=== PATIENT | male | born 1940 | race Caucasian/White ===

== ENCOUNTER 2017-04-14 14:48 | Inpatient (IN) | payer MEDICARE ==
[2017-04-14 16:13] LABS: Hematocrit 45 % (42-52); Hemoglobin 15.3 g/dl (14.0-18.0); Mean Corpuscular HGB Conc 34 g/dl (31-36); Mean Corpuscular Hemoglobin 34 pg (27-31); Mean Corpuscular Volume 99 fL (80-94); Mean Platelet Volume 8 um3 (7.4-10.4); Red Blood Count 4.53 10^6/ul (4.0-5.4); Red Cell Distribution Width 13 % (10.5-15); White Blood Count 7.6 10^3/ul (3.5-10.8)
[2017-04-14 16:24] LABS: Albumin 4.3 g/dL (3.2-5.2); BUN/Creatinine Ratio 16.5 (8-20); Calcium 9.6 mg/dL (8.6-10.3); EGFR African American 104.2 (>60); Globulin 2.8 g/dL (2-4); Potassium 4.2 mmol/L (3.5-5.0); Total Bilirubin 0.7 mg/dL (0.2-1.0); Total Protein 7.1 g/dL (6.4-8.9)
--- NOTE | 2017-04-14 16:31 | RAD ---
HISTORY: Loss of peripheral vision, headache, colon cancer COMPARISONS: None TECHNIQUE: Multiple contiguous axial CT scans were obtained of the head without intravenous contrast. FINDINGS: HEMORRHAGE/INFARCT: There is a left frontoparietal subdural hematoma further described below. There is high attenuation material consistent with hemorrhage noted within a left occipital infarct, also described below. MASSES/SHIFT: There is no mass or shift. EXTRA-AXIAL SPACES: As noted above, there is a left frontoparietal convexity extra-axial fluid collection consistent with a subacute to chronic subdural hematoma. This measures 1 cm in depth. SULCI AND VENTRICLES: The sulci and ventricles are normal in size and position for the patient's stated age. CEREBRUM: There is hypoattenuation of the left occipital lobe consistent with subacute infarct. There is high attenuation material centrally consistent with hemorrhagic conversion. There is no stephon parenchymal hematoma. BRAINSTEM: There are no focal parenchymal abnormalities. CEREBELLUM: There are no focal parenchymal abnormalities. VESSELS: The vessels are grossly normal. PARANASAL SINUSES: The paranasal sinuses are clear. ORBITS: The orbits are unremarkable. BONES AND SOFT TISSUE: No bone or soft tissue abnormalities are noted. OTHER: None IMPRESSION: 1. FINDINGS CONSISTENT WITH HEMORRHAGIC CONVERSION OF A SUBACUTE LEFT OCCIPITAL INFARCT. 2. 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 3. PRELIMINARY FINDINGS WERE DISCUSSED WITH DR. SAAVEDRA IN THE EMERGENCY DEPARTMENT AT APPROXIMATELY 4:28 PM ON APRIL 14, 2017.
--- NOTE | 2017-04-14 17:30 | RAD ---
HISTORY: Weakness COMPARISONS: None VIEWS:1: Single frontal portable view of the chest at 5:27 PM FINDINGS: LINES AND TUBES: None. CARDIOMEDIASTINAL SILHOUETTE: The cardiomediastinal silhouette is normal for portable technique. PLEURA: The costophrenic angles are sharp. No pleural abnormalities are noted. LUNG PARENCHYMA: The lungs are clear. ABDOMEN: The upper abdomen is clear. There is no subphrenic gas. BONES AND SOFT TISSUES: No bone or soft tissue abnormalities are noted. IMPRESSION: NO ACTIVE CARDIOPULMONARY DISEASE.
[2017-04-14 17:31] LABS: Troponin I 0.01 ng/mL (<0.04)
[2017-04-14] MEDS ORDERED: Acetaminophen TAB* 325 MG PO PRN (18:27)
[2017-04-14] MEDS ORDERED: Iohexol 350* (CONTRAST) 500 ML MDV IV ONE (18:29)
[2017-04-14] MEDS ORDERED: NS 0.9% 1000 ML* 1,000 ML IV SCH (18:30)
--- NOTE | 2017-04-14 20:19 | RAD ---
HISTORY: Stroke, rule out stenosis COMPARISONS: CT dated April 14, 2017 TECHNIQUE: Multiple contiguous axial CT scans were obtained of the head and neck After the administration of nonionic intravenous contrast timed to the systemic arterial phase of contrast enhancement. Coronal and sagittal multiplanar reformations are submitted for review. Multiple 3-D maximum intensity projection reconstructions are also submitted for review. FINDINGS: CTA NECK: AORTIC ARCH: There is calcific atherosclerotic disease of the aortic arch, without ostial or proximal stenosis of the cephalic great vessels. There is a normal three-vessel branching pattern. RIGHT VERTEBRAL ARTERY: The right vertebral artery is patent along its course, without stenosis. LEFT VERTEBRAL ARTERY: The left vertebral artery is patent along its course, without stenosis. DOMINANCE: The left vertebral artery is dominant. RIGHT COMMON CAROTID ARTERY: The right common carotid artery is patent. The right carotid bifurcation occurs at C4-C5 RIGHT INTERNAL CAROTID ARTERY: There is atheromatous disease of the right carotid bifurcation, without right internal carotid artery stenosis by NASCET criteria. RIGHT EXTERNAL CAROTID ARTERY: The right external carotid artery is unremarkable. LEFT COMMON CAROTID ARTERY: The left common carotid artery is patent. The left carotid bifurcation occurs at C5 LEFT INTERNAL CAROTID ARTERY: There is atheromatous disease of the left carotid bifurcation, without left internal carotid artery stenosis by NASCET criteria. LEFT EXTERNAL CAROTID ARTERY: The left external carotid artery is unremarkable. VENOUS CIRCULATION: The venous system is unremarkable. SALIVARY GLANDS: The parotid glands, submandibular glands, sublingual glands are normal. NASAL CAVITY/NASOPHARYNX: The nasal cavity and nasopharynx are normal. ORAL CAVITY/OROPHARYNX: The oral cavity and oropharynx are unremarkable. LARYNGEAL APPARATUS/HYPOPHARYNX: The laryngeal apparatus and hypopharynx are normal. UPPER AIRWAY/UPPER ESOPHAGUS: The visualized upper airway and esophagus are normal. LUNG APICES: There is emphysema with right apical pleuroparenchymal scarring THYROID GLAND: The thyroid gland is normal. LYMPH NODES: There is no lymphadenopathy by size criteria. BONES AND SOFT TISSUES: Degenerative changes are noted of the cervical spine CTA HEAD: INTRACRANIAL CIRCULATION: There is calcification of the cavernous segments of internal carotid arteries bilaterally. There is no aneurysm, vascular malformation, occlusion, or stenosis of the visualized intracranial circulation. The anterior communicating artery complex is clear. Bilateral posterior communicating arteries are identified. VENOUS CIRCULATION: The venous system is unremarkable. PERFUSION: There is no obvious parenchymal perfusion deficit. HEMORRHAGE/INFARCT: As noted on the previous examination, there is a subacute infarct of the left occipital lobe with hemorrhagic MASSES/SHIFT: There is no mass or shift. EXTRA-AXIAL SPACES: As noted on the previous examination, there is a subacute to chronic left frontoparietal subdural hematoma. SULCI AND VENTRICLES: The sulci and ventricles are normal in size and position for the patient's stated age. CEREBRUM: As noted above, there is a subacute left occipital infarct with hemorrhagic conversion BRAINSTEM: There are no focal parenchymal abnormalities. CEREBELLUM: There are no focal parenchymal abnormalities. PARANASAL SINUSES: The paranasal sinuses are clear. ORBITS: The orbits are unremarkable. BONES AND SOFT TISSUE: No bone or soft tissue abnormalities are noted. OTHER: There is no abnormal enhancement. IMPRESSION: 1. AGAIN IT IS A LEFT OCCIPITAL SUBACUTE INFARCT WITH HEMORRHAGIC CONVERSION. 2. AGAIN NOTED IS A LEFT FRONTOPARIETAL SUBDURAL HEMATOMA. 3. THERE IS ATHEROSCLEROSIS OF THE CAROTID BIFURCATIONS BILATERALLY WITHOUT INTERNAL CAROTID ARTERY STENOSIS BY NASCET CRITERIA. 4. NO ANEURYSM, VASCULAR MALFORMATION, OCCLUSION, OR STENOSIS OF THE VISUALIZED INTRACRANIAL CIRCULATION. 5. EMPHYSEMA WITH RIGHT APICAL PLEURAL PARENCHYMAL SCARRING CPT II Codes: 3100F
--- NOTE | 2017-04-14 20:27 | RAD ---
HISTORY: Blurred vision, stroke, subdural hematoma COMPARISONS: Head CT dated April 14, 2017 TECHNIQUE: The following sequences were obtained of the head: Sagittal T1-weighted images, axial T2-weighted images, axial FLAIR images, axial susceptibility weighted images, axial T1-weighted images. Additionally, axial diffusion-weighted images were obtained with calculated apparent diffusion coefficients. FINDINGS: HEMORRHAGE/INFARCT: As noted on the head CT, there is a left occipital infarct with hemorrhagic conversion. Elsewhere, there is no hemorrhage or acute infarct. MASSES/SHIFT: There is no mass or shift. EXTRA-AXIAL SPACES/MENINGES: As noted on head CT, there is a left subacute to chronic frontoparietal subdural hematoma. This measures approximately 1 cm in depth. SULCI AND VENTRICLES: The sulci and ventricles are normal in size and position for the patient's stated age. CEREBRUM: As noted above, there is elevated T2/flair signal with blood product noted in the left occipital lobe. There is associated elevated diffusion signal without restricted diffusion on the ADC map, consistent with pseudonormalization in the setting of subacute to chronic infarct. BRAINSTEM: There are no focal parenchymal abnormalities. CEREBELLUM: There are no focal parenchymal abnormalities. The cerebellar tonsils are normal in size and position. SELLA: The sella is normal. PINEAL: The pineal region is clear. CP ANGLE/TEMPORAL BONES: The labyrinthine structures are grossly normal. VESSELS: Normal flow-voids are noted within the visualized vertebral vasculature. DIFFUSION ABNORMALITIES: As noted above, there is elevated diffusion signal within the left occipital lobe without restricted diffusion consistent with pseudonormalization in the setting of subacute to chronic infarct PARANASAL SINUSES/MASTOIDS: The paranasal sinuses are clear. ORBITS: The orbits are unremarkable. BONES AND SOFT TISSUE: No bone or soft tissue abnormalities are noted. OTHER: None IMPRESSION: 1. SUBACUTE TO CHRONIC LEFT OCCIPITAL INFARCT WITH BLOOD PRODUCT CONSISTENT WITH HEMORRHAGIC CONVERSION. 2. SUBACUTE TO CHRONIC LEFT FRONTOPARIETAL SUBDURAL HEMATOMA
[2017-04-14] MEDS: Docusate CAP* 100 MG PO SCH (22:05)
--- NOTE | 2017-04-14 23:53 | HP ---
CC: Dr. Cerrato, Ophthalmology; Dr. Carrington* HISTORY AND PHYSICAL: DATE OF ADMISSION: 04/14/17 PRIMARY CARE PHYSICIAN: Rosita Antoine NP CHIEF COMPLAINT: Visual changes. HISTORY OF PRESENT ILLNESS: Bridger Robertson is a 76-year-old male with history of glucose intolerance, hypertension, colon cancer, who was sent from our local stable cleaner's office with concerns of most likely ischemic CVA. The patient stated that for the past week, he has been problems with visual field deficits on the right side. He stated that although it started getting better, he went to see provider Dr. Cerrato's office for evaluation, and on his visual field evaluation, it was noticed that he has right superior temporal quadrantanopia. Subsequent CT of the brain obtained in our emergency department showed hemorrhagic conversion of subacute left occipital infarct as well as left frontoparietal subacute to chronic subdural hematoma without shift. The patient denies any head trauma. He is going to be admitted to the hospital with a diagnosis of stroke. PAST MEDICAL HISTORY: 1. History of bilateral knee replacement surgeries. 2. Hypertension. 3. Dyslipidemia. 4. Hypertension. 5. Basal skin cancer on the face and both arms. 6. History of glucose intolerance. 7. History of colon cancer, status post resection. ALLERGIES: No known drug allergies. MEDICATIONS: Includes: 1. Glucophage 500 mg daily. 2. Amlodipine 5 mg daily. 3. Aldactone 25 mg daily. 4. Multivitamin 1 tablet daily. 5. Lovastatin 20 mg daily. 6. Lisinopril 20 mg daily. 7. Aspirin 81 mg daily. FAMILY HISTORY: Positive for mother who of pancreatic cancer at the age of 76. Father at age of 91 secondary to CHF. SOCIAL HISTORY: The patient quit smoking in 2001. He denies any alcohol or drug use. He is retired and lives in an apartment adjacent to his son, Joel Robertson, who is also his surrogate. The patient is . REVIEW OF SYSTEMS: Please see history of present illness. The patient denies any headaches and recent head trauma. Stated that right-sided visual deficit has been getting better for the past one week. All the remaining 14 systems were reviewed with the patient and were otherwise negative. PHYSICAL EXAMINATION GENERAL: This is a very pleasant 76-year-old male who is in no acute distress. Alert, awake and oriented x3. VITAL SIGNS: Blood pressure of 161/64, heart rate of 68 and regular, respiratory rate 22, oxygen saturation 96% on room air, temperature of 98.9. HEENT: Head atraumatic, normocephalic. Eyes: Pupils equal and reactive to light and accommodation. Oropharynx clear. Mucosa moist. NECK: Supple. No JVD. No bruits bilaterally. RESPIRATORY: Clear to auscultation bilaterally. CARDIOVASCULAR: Regular rate and rhythm. No murmur. ABDOMEN: Soft, nontender. Bowel sounds present in all 4 quadrants. EXTREMITIES: There is no edema. Pulses 2+ bilaterally. No clubbing or cyanosis. NEUROLOGIC: The patient does have very minimal deficit in the right upper temporal visual rivera in bilateral eyes. Motor strength is 5/5 bilaterally. Finger-to- nose is intact bilaterally. Hand egg caser is +5 bilaterally. Bilateral lower extremities motor strength is 5/5. SKIN: No ecchymotic areas or rashes. PSYCHIATRIC EVALUATION: Awake, alert and oriented x3 with no evidence of anxiety or depression. LABORATORY DATA/DIAGNOSTIC STUDIES: Showed sodium of 130, potassium 4.2, chloride 98, carbon dioxide 25, BUN 16, creatinine 0.91. Liver functions unremarkable. Troponin of 0.01. INR of 0.98. PTT of 40.9. White blood cell count 7.6, hemoglobin 15.3, hematocrit 45, and platelets of 279. Portable chest x-ray, impression: "No active cardiopulmonary disease." Brain CT, impression: "Findings consistent with hemorrhagic conversion of subacute left occipital infarct. Left frontoparietal subacute chronic subdural hematoma without shift." The patient's EKG showed left bundle branch block. There was no old EKG available for comparison. ASSESSMENT AND PLAN: 1. Subacute cerebrovascular accidents with right-sided visual deficits that manifested itself approximately a week ago. The patient is going to be placed on inpatient status. Neuro checks are going to be instituted on [id number] basis. Dr. Carrington is going to be seeing the patient in consult. From the recommendation of the neurologist, the patient is going to undergo an MRI as well as CT angiogram of the head and neck, and echo with bubble study. His antiplatelet agent aspirin is going to be held due to subdural hematoma. Physical Therapy and Occupational Therapy will see the patient in evaluation. The patient did not have any dysphagia or dysarthria during my evaluation. He is going to be placed on diabetic diet and no swallow evaluation will be requested. 2. In regards to hypertension, his outpatient antihypertensive medications are going to be continued. His blood pressure is fairly controlled at this point. 3. In regards to dyslipidemia, the patient's Mevacor is out of formulary. We will place the patient on Lipitor during the hospital stay and fasting lipid profile is going to be obtained in the morning. 4. In regards to the patient's diet-controlled diabetes or glucose intolerance , the patient is on metformin. His hemoglobin A1c in February of 2017 was 6.6. At this point, metformin is going to be held but no other further tests are needed apart from continuation of diabetic diet. 5. Patient's code status is full. 6. DVT prophylaxis is going to be sequential compression devices since the patient cannot be on anticoagulation due to intracranial hemorrhage. TIME SPENT: Approximately 72 minutes were spent on admission of this patient, more than half that time was spent [id number] with the patient doing the interview and physical exam. [id number]/[facility] #: [id number] WILLIAMS
[2017-04-15 04:44] LABS: HDL Cholesterol 46.1 mg/dL
[2017-04-15] MEDS ORDERED: Spironolactone TAB* 25 MG PO SCH (09:00)
[2017-04-15] MEDS: amLODIPine TAB* 5 MG PO SCH (09:19)
[2017-04-15] MEDS: Lisinopril TAB* 10 MG PO SCH (09:19)
[2017-04-15] MEDS: Docusate CAP* 100 MG PO SCH ×2 (09:21→21:55)
[2017-04-15 09:33] LABS: BUN/Creatinine Ratio 17.6 (8-20); Calcium 8.8 mg/dL (8.6-10.3); EGFR African American 104.2 (>60); Potassium 4.4 mmol/L (3.5-5.0)
--- NOTE | 2017-04-15 13:42 | PN ---
Subjective Date of Service: 04/15/17 Interval History: pt feels that his vision is improved, still has slight light sensitivity. Denies headache, weakness Objective Active Medications: Acetaminophen (Tylenol Tab*) 650 mg PO Q4H PRN PRN Reason: FEVER/PAIN Last Admin: 04/14/17 22:07 Dose: 650 mg Amlodipine Besylate (Norvasc Tab*) 5 mg PO DAILY [facility] Last Admin: 04/15/17 09:19 Dose: 5 mg Atorvastatin Calcium (Lipitor*) 10 mg PO 1700 [facility] Docusate Sodium (Colace Cap*) 100 mg PO BID [facility] Last Admin: 04/15/17 09:21 Dose: Not Given Sodium Chloride (Ns 0.9% 1000 Ml*) 1,000 mls @ 75 mls/hr IV PER RATE [facility] Last Admin: 04/15/17 07:40 Dose: 75 mls/hr Lisinopril (Prinivil Tab*) 20 mg PO DAILY [facility] Last Admin: 04/15/17 09:19 Dose: 20 mg Vital Signs 04/14/17 04/14/17 04/14/17 17:30 18:29 20:00 Temperature 98.9 F Pulse Rate 67 64 Respiratory 22 14 18 Rate Blood Pressure 151/64 146/64 (mmHg) O2 Sat by Pulse 96 96 Oximetry 04/15/17 04/15/17 04/15/17 00:21 00:32 00:34 Temperature 98.1 F Pulse Rate 63 59 Respiratory 20 Rate Blood Pressure 107/56 105/54 134/66 (mmHg) O2 Sat by Pulse 95 Oximetry 04/15/17 04/15/17 04/15/17 04:01 07:29 08:00 Temperature 98.4 F 98.5 F Pulse Rate 63 62 Respiratory 20 16 16 Rate Blood Pressure 126/56 121/59 (mmHg) O2 Sat by Pulse 97 97 Oximetry 04/15/17 11:23 Temperature 98.9 F Pulse Rate 68 Respiratory 16 Rate Blood Pressure 139/55 (mmHg) O2 Sat by Pulse 97 Oximetry Oxygen Devices in Use Now: None Appearance: 76 yo m in NAD, AAOx3 Eyes: No Scleral Icterus, PERRLA Ears/Nose/Mouth/Throat: NL Teeth, Lips, Gums, Mucous Membranes Moist Neck: NL Appearance and Movements; NL JVP, Trachea Midline Respiratory: Symmetrical Chest Expansion and Respiratory Effort, Clear to Auscultation Cardiovascular: NL Sounds; No Murmurs; No JVD, RRR Abdominal: NL Sounds; No Tenderness; No Distention Lymphatic: No Cervical Adenopathy Extremities: No Edema, No Clubbing, Cyanosis Skin: No Rash or Ulcers, No Nodules or Sclerosis Neurological: Alert and Oriented x 3, NL Muscle Strength and Tone, - - no gross visual field deficit detected on today's exam Result Diagrams: 04/14/17 15:56 04/15/17 09:12 Additional Lab and Data: Lab Results 04/14/17 Range/Units 15:56 WBC 7.6 (3.5-10.8) 10^3/ul RBC 4.53 (4.0-5.4) 10^6/ul Hgb 15.3 (14.0-18.0) g/dl Hct 45 (42-52) % MCV 99 H (80-94) fL MCH 34 H (27-31) pg MCHC 34 (31-36) g/dl RDW 13 (10.5-15) % Plt Count 279 (150-450) 10^3/ul MPV 8 (7.4-10.4) um3 Neut % (Auto) 72.9 (38-83) % Lymph % (Auto) 16.1 L (25-47) % [place] % (Auto) 7.2 (1-9) % Eos % (Auto) 1.3 (0-6) % Baso % (Auto) 2.5 H (0-2) % Absolute Neuts (auto) 5.5 (1.5-7.7) 10^3/ul Absolute Lymphs (auto) 1.2 (1.0-4.8) 10^3/ul Absolute Monos (auto) 0.5 (0-0.8) 10^3/ul Absolute Eos (auto) 0.1 (0-0.6) 10^3/ul Absolute Basos (auto) 0.2 (0-0.2) 10^3/ul Absolute Nucleated RBC 0.01 10^3/ul Nucleated RBC % 0.1 Assess/Plan/Problems-Billing Assessment: 76 yo M with h/o HTN, DM2, colon ca, presents with visual field deficit x 1 week , CT shows SDH and ischemic CVA with hemorrhagic conversion - Patient Problems (1) CVA (cerebral vascular accident) Comment: ischemic, with hemorrhagic conversion cont telem-so far NSR with LBBB Awaiting TTE and Dr. Carrington's consult MRI brain and CTA confirm SDH and CVA, but no significant vascular abnormality noted. 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 In conjsunction with hyponatremia and mild dehydration, will d/c Aldactone (4) Hyperlipemia Comment: Lipitor instead of Mevacor when in hospital. LDL 87 Plan to increase Mevacor to 30 mg at d/c (5) DM2 (diabetes mellitus, type 2) Comment: Metformin held post contrast study. Hb A.1C 6.6 in 03/14, cont ISS Plan to restart metformin at d/c (6) LBBB (left bundle branch block) Comment: No previous EKG in med records. In process of obtainin notes from PCP No symptoms of CP/SOB, suspect chronic Echo pending troponin neg at admission. (7) Hyponatremia Comment: suspect mild dehydration IVF-pt did not receive IVF last night as ordered, reordered for today Stop Aldactone (8) DVT prophylaxis Comment: no anticoagulants due to SDH SCD's when in bed
--- NOTE | 2017-04-15 15:33 | ED ---
Na Hernandez Auryana, scribed for Dillon Villegas MD on 04/14/17 at 1631 . Neurological HPI - HPI Summary HPI Summary: 76 year old male presents to the ED s/p stroke like symptoms. Patient reports that last Thursday (04/08/17), his eyes became blurry and then he had left sided sharp temporal pain with nausea and photophobia. He called his PCP who recommended that he get an eye exam. 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 Patient also states that he cannot read anything but is able to spell words out. He denies any weakness, slurred speech or and difficulty speaking. PMHx is significant of colon cancer and HTN. No history of cardiac issues or any stroke. - History of Current Complaint Chief Complaint: EDEyeProblem Stated Complaint: BOTH EYES BLURRY/HEADACHE Time Seen by Provider: 04/14/17 16:06 Hx Obtained From: Patient Onset/Duration: Sudden Onset, Started days ago - last thursday 6 days ago Timing: Constant Onset Severity: Moderate Current Severity: Mild Pain Intensity: 3 Pain Scale Used: 0-10 Numeric Character: Visual Changes Associated Signs and Symptoms: Positive: Visual Changes - blindness in the RUQ - Allergy/Home Medications Allergies/Adverse Reactions: Allergies Allergy/AdvReac Type Severity Reaction Status Date / Time No Known Allergies Allergy Verified 08/29/14 06:18 Home Medications: Home Medications Aspirin EC Low Dose* [Ecotrin EC Low Dose 81 MG*] 81 mg PO DAILY 04/14/17 [ History Confirmed 04/14/17] Lisinopril TAB* [Prinivil TAB*] 20 mg PO DAILY 04/14/17 [History Confirmed 04/14] Lovastatin(NF) [Mevacor(NF)] 20 mg PO DAILY 04/14/17 [History Confirmed 04/14/17 ] Multivitamins/Minerals TAB* [Theragran/minerals TAB*] 1 tab PO DAILY 04/14/17 [ History Confirmed 04/14/17] Spironolactone TAB* [Aldactone TAB*] 25 mg PO DAILY 04/14/17 [History Confirmed 04/14/17] amLODIPine TAB* [Norvasc 5 mg TAB*] 5 mg PO DAILY 04/14/17 [History Confirmed ] metFORMIN* [Glucophage 500 MG TAB *] 500 mg PO DAILY 04/14/17 [History Confirmed 04/14/17] PMH/Surg Hx/FS Hx/Imm Hx Endocrine/Hematology History: Denies: Hx Diabetes, Hx Thyroid Disease Cardiovascular History: Reports: Hx Hypertension Musculoskeletal History: Reports: Hx Arthritis - RIGHT HIP, LEFT KNEE Sensory History: Reports: Hx Contacts or Glasses - READING Denies: Hx Hearing Aid Opthamlomology History: Reports: Hx Contacts or Glasses - READING Neurological History: Denies: Hx Headaches Psychiatric History: Denies: Hx Anxiety - Cancer History Cancer Type, Location and Year: COLON - Surgical History Surgery Procedure, Year, and Place: 2001 COLON RESECTION FOR [place]. 2010 RIGHT THR [place]. 2009 BILAT BLEPHAROPLASTY [facility] Hx Anesthesia Reactions: Yes - SEE NURSING NOTES Infectious Disease History: Denies: Traveled Outside the [place] in Last 30 Days - Social History Alcohol Use: None Substance Use Type: Reports: None Smoking Status (MU): Former Smoker Amount Used/How Often: 2 PACKSA/DAY FOR 30 YRS Length of Time of Smoking/Using Tobacco: 30 YRS Review of Systems Constitutional: Negative Negative: Fever Positive: Photophobia - resolved, Blurred Vision - resolved, Other - blindness in the RUQ ENT: Negative Cardiovascular: Negative Respiratory: Negative Gastrointestinal: Negative Positive: Nausea - resolved Genitourinary: Negative Musculoskeletal: Negative Skin: Negative Neurological: Other - unable to read words but is able to spell them Positive: Headache - left temporal pain resolved. Negative: Slurred Speech Psychological: Normal All Other Systems Reviewed And Are Negative: Yes Physical Exam - Summary Physical Exam Summary: VITAL SIGNS: Reviewed. GENERAL: ~Patient is a well-developed and nourished male who is lying comfortable in the stretcher. ~Patient is not in any acute respiratory distress. HEAD AND FACE: No signs of trauma. ~No ecchymosis, hematomas or skull depressions. No sinus tenderness. EYES: PERRLA, EOMI x 2, No injected conjunctiva, no nystagmus. No photophobia. EARS: Hearing grossly intact. Ear canals and tympanic membranes are within normal limits. MOUTH: Oropharynx within normal limits. NECK: Supple, trachea is midline, no adenopathy, no JVD, no carotid bruit, no c- spine tenderness, neck with full ROM. No meningeal signs, no Kernig's or brudzinskis signs. CHEST: Symmetric, no tenderness at palpation LUNGS: Clear to auscultation bilaterally. No wheezing or crackles. CVS: Regular rate and rhythm, S1 and S2 present, no murmurs or gallops appreciated. ABDOMEN: Soft, non-tender. No signs of distention. No rebound no guarding, and no masses palpated. Bowel sounds are normal. EXTREMITIES: FROM in all major joints, no edema, no cyanosis or clubbing. NEURO: Alert and oriented x 3. No acute neurological deficits. Speech is normal and follows commands. SKIN: Dry and warm Triage Information Reviewed: Yes Vital Signs On Initial Exam: Initial Vitals Temp Pulse Resp BP Pulse Ox 97.5 F 66 20 156/72 98 04/14/17 14:51 04/14/17 14:51 04/14/17 14:51 04/14/17 14:51 04/14/17 14:51 Vital Signs Reviewed: Yes Diagnostics - Vital Signs Vital Signs Temp Pulse Resp BP Pulse Ox 04/14/17 14:51 97.5 F 66 20 156/72 98 - Laboratory Lab Results: Lab Results 04/14/17 Range/Units 15:56 WBC 7.6 (3.5-10.8) 10^3/ul RBC 4.53 (4.0-5.4) 10^6/ul Hgb 15.3 (14.0-18.0) g/dl Hct 45 (42-52) % MCV 99 H (80-94) fL MCH 34 H (27-31) pg MCHC 34 (31-36) g/dl RDW 13 (10.5-15) % Plt Count 279 (150-450) 10^3/ul MPV 8 (7.4-10.4) um3 Neut % (Auto) 72.9 (38-83) % Lymph % (Auto) 16.1 L (25-47) % [place] % (Auto) 7.2 (1-9) % Eos % (Auto) 1.3 (0-6) % Baso % (Auto) 2.5 H (0-2) % Absolute Neuts (auto) 5.5 (1.5-7.7) 10^3/ul Absolute Lymphs (auto) 1.2 (1.0-4.8) 10^3/ul Absolute Monos (auto) 0.5 (0-0.8) 10^3/ul Absolute Eos (auto) 0.1 (0-0.6) 10^3/ul Absolute Basos (auto) 0.2 (0-0.2) 10^3/ul Absolute Nucleated RBC 0.01 10^3/ul Nucleated RBC % 0.1 Result Diagrams: 04/14/17 15:56 04/14/17 15:56 Lab Statement: Any lab studies that have been ordered have been reviewed, and results considered in the medical decision making process. - CT BRAIN CT Interpretation: Positive (See Comments) - IMPRESSION: 1. FINDINGS CONSISTENT WITH HEMORRHAGIC CONVERSION OF A SUBACUTE LEFT OCCIPITAL INFARCT. 2. 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 3. PRELIMINARY FINDINGS WERE DISCUSSED WITH DR. VILLEGAS IN THE EMERGENCY DEPARTMENT AT APPROXIMATELY 4:28 PM ON APRIL 14, 2017. CT Interpretation Completed By: Radiologist - EKG 15:12 EKG Interpretation: Sinus rhythm @ 62, Q waves in leads III, avF, V1-V3 Course/Dx - Course Assessment/Plan: 76 year old male presents to the ED s/p stroke like symptoms. Patient reports that last Thursday (04/08/17), his eyes became blurry and then he had left sided sharp temporal pain with nausea and photophobia. He called his PCP who recommended that he get an eye exam. 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 Patient also states that he cannot read anything but is able to spell words out. He denies any weakness, slurred speech or and difficulty speaking. PMHx is significant of colon cancer and HTN. No history of cardiac issues or any stroke. In the ED course an IV access was obtained. Patient was placed in a cardiac rehabilitation program director. Patient was started with IV fluids. Labs w/o a significant abnormality except for NA 130. Troponin #1: EKG shows a NSR 64 BPM , with Q waves II, aVF, V1 to V3. CXR impression: No acute pathology. Head CT IMPRESSION: 1. FINDINGS CONSISTENT WITH HEMORRHAGIC CONVERSION OF A SUBACUTE LEFT OCCIPITAL INFARCT. 2. 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 In the ED course he has been stable and has no complaints. I discussed the case with Dr. Carrington who will consult for the patient. I discuss my physical exam, findings and test results with Dr. Goddard from the hospitalist services and she agrees to admit patient to his services. Patient is hemodynamically stable alert and oriented x 3. - Differential Dx Differential Diagnoses Neuro: Positive: Cerebrovascular Accident, Seizure Disorder, Transient Ischemic Attack - Diagnoses Provider Diagnoses: ischemic and hemorrhagic CVA, Subdural hematoma - Physician Notifications Discussed Care Of Patient With: Irasema Carrington Time Discussed With Above Provider: 17:00 - WILL CONSULT PATINET AND RECOMMENDS ADMISSION TO [facility] [place] - Discharge Plan Condition: Stable Disposition: ADMITTED TO [facility] Referrals: Rosita Antoine FILBERT GROWER [Primary Care Provider] - The documentation as recorded by the Na douglass Auryana accurately reflects the service I personally performed and the decisions made by me, Dillon Villegas MD.
[2017-04-15] MEDS ORDERED: Atorvastatin* 10 MG TAB PO SCH (17:00)
[2017-04-15] MEDS: Aspirin Low Dose CHEW TAB* 81 MG PO SCH (17:31)
--- NOTE | 2017-04-15 17:31 | ECHO ---
Patient: BOTSON BRAUN [facility] Rec#: [id number] : 1940 Date: 04/15/2017 Age: 76y Height: 180.34 cm / 71.0 in Weight: 89.81 kg / 197.9 lbs Sex: M BSA: 2.1 Room#: 435 Admit Date#: 04/14/2017 Type: Inpatient Referring: Teresa Goddard MD Reading: Paige Yarbrough MD Piercer Operator: Toya Mcfarlane [facility] Transthoracic Echocardiogram Indication: CVA BP: 126/56 HR: 68 Rhythm: NSR Findings History: HTN, prior colon cancer,HLD,former smoker. EKG with LBBB. Technical Comments: The study quality is fair. Left Ventricle: The left ventricular chamber size is normal. Mild concentric left ventricular hypertrophy is observed. Global left ventricular wall motion and contractility are within normal limits. The left ventricle appears hyperdynamic. The estimated ejection fraction is 60-65%. Abnormal left ventricular diastolic function is observed. Left Atrium: The left atrial chamber size is normal. Right Ventricle: The right ventricular cavity size is normal. The right ventricular global systolic function is normal. Right Atrium: The right atrial cavity size is normal. There is no patent foramen ovale visualized. A patent foramen ovale is not demonstrated with color Doppler and agitated contrast. Study suboptimal due to body habitus. Aortic Valve: The aortic valve is trileaflet. There is no evidence of aortic valve thickening. There is no evidence of aortic regurgitation. There is no evidence of aortic stenosis. Mitral Valve: There is mitral annular calcification. The mitral valve leaflets are mildly thickened. There is a trace of mitral regurgitation. There is no evidence of mitral stenosis. Tricuspid Valve: The tricuspid valve leaflets are normal. There is no evidence of tricuspid valve regurgitation. There is no tricuspid stenosis. Pulmonic Valve: The pulmonic valve appears normal. There is no evidence of pulmonic regurgitation. There is no pulmonic stenosis. Pericardium: A pericardial fat pad is visualized. Aorta: The ascending aorta is not well visualized. There is no dilatation of the aortic arch. There is mild dilatation of the aortic root. Pulmonary Artery: The main pulmonary artery appears normal. Venous: The venous system is not well visualized. Contrast: Normal saline was used as contrast for the bubble study. Intravenous contrast was used to help determine presence of intracardiac shunting. Conclusions The study quality is fair. Mild concentric left ventricular hypertrophy is observed. The left ventricle appears hyperdynamic. The estimated ejection fraction is 65%. Abnormal left ventricular diastolic function is observed. The right ventricular global systolic function is normal. A patent foramen ovale is not demonstrated with color Doppler and agitated contrast, note that imaging of bubbles was suboptimal There is mitral annular calcification. All valves show good function. No prior echo to compare. Consider GUILLAUME (transesophogeal echo) with bubble if clinically indicated to better evalaute for possible cardioembolic source. Measurements Name Value Normal Range RVIDd (AP) 2D 2.8 cm (0.9 - 2.6) RVDdMajor (2D) 3.1 cm (2.2 - 4.4) RAd ISD 4CH 4.8 cm (3.4 - 4.9) RA (A4C)W 3.9 cm (2.9 - 4.6) IVSd (2D) 1.2 cm (0.6 - 1) LVPWd (2D) 1.3 cm (0.6 - 1) LVIDd (2D) 4.6 cm (3.6 - 5.4) LVIDs (2D) 2 cm - LV FS (2D) 58 % (25 - 45) Aortic Annulus 2 cm (1.4 - 2.6) Ao root diameter (2D) 3.7 cm (2.1 - 3.5) Aortic arch 1.4 cm (1.8 - 3.4) Descending Ao 0.6 cm - LA dimension (AP) 2D 3.7 cm (2.3 - 3.8) LAd ISD 4CH 5.2 cm (2.9 - 5.3) LA ISD 4CH W 4 cm (2.5 - 4.5) Name Value Normal Range LA ESV SP 4CH (A/L) 43 ml - LA ESV SP 2CH (A/L) 54 ml - LA ESV BP (A/L) 54 ml - LA ESV BP (A/L) index 25.82 ml/m2 - LA ESV SP 4CH (MOD) 41 ml - LA ESV SP 2CH (MOD) 51 ml - Name Value Normal Range MV E-wave Vmax 0.6 m/sec - MV deceleration time 311 msec - MV A-wave Vmax 1.3 m/sec - MV E:A ratio 0.5 ratio - LV septal e' Vmax 0.07 m/sec - LV lateral e' Vmax 0.06 m/sec - LV E:e' septal ratio 8.57 ratio - LV E:e' lateral ratio 10 ratio - Name Value Normal Range AV Vmax 1.7 m/sec - AV VTI 34.5 cm - AV peak gradient 11.87 mmHg - AV mean gradient 6.37 mmHg - LVOT Vmax 1.6 m/sec - LVOT VTI 34.5 cm - LVOT peak gradient 10.77 mmHg - LVOT mean gradient 6.36 mmHg - Name Value Normal Range PV Vmax 1.2 m/sec - PV peak gradient 6.19 mmHg -
--- NOTE | 2017-04-15 19:36 | CONS ---
NEUROLOGY CONSULTATION: DATE OF CONSULT: 04/15/17 LOCATION: The patient is an inpatient. REQUESTING PHYSICIAN: Dr. Teresa Goddard. REASON FOR CONSULT: Subacute stroke. HISTORY OF PRESENT ILLNESS: Bridger Robertson is a 76-year-old right-handed man with a history of diabetes, hypertension, as well as colon cancer and hyperlipidemia, who presented to the emergency department on recommendation from Dr. Cerrato's office yesterday. He reports that 1 week ago, he had sudden onset of visual disturbance off to the right while watching television. He described this like a swirling sensation off to the right side of his vision. Shortly thereafter, he developed a left temporal headache and thought that he might be having a migraine headache though he has no prior to history of this. The symptoms did not improve much over the next few days and his son advised him to contact his primary care provider. He contacted Rosita Antoine NP, who suggested that he might have a detached retina and to see an eye doctor as soon as possible. He was evaluated in Dr. Cerrato's office yesterday and on their evaluation, there was concern for a stroke and he was referred to the emergency department. On evaluation here in the ED, his CT scan showed a subacute left occipital ischemic infarct with some subacute hemorrhagic transformation. In addition, he had a small left frontoparietal subdural hematoma as well. He denies any head or neck trauma. He was taking baby aspirin as well as ibuprofen for his headache, but not in excessive amount and he estimates maybe 600 mg per day of ibuprofen prior to being admitted. He notes that he was in [place] until 3 days ago visiting family for 3 weeks and during that time, he had run out of aspirin and was not taking it. He restarted when he returned from his trip. He denies any extremity weakness or numbness, slurred speech, aphasia, vertigo, balance difficulties or coordination problems with this event. He denies any chest pain, palpitations, or fluttering in his chest. PAST MEDICAL HISTORY: 1. Hypertension. 2. Diabetes. 3. Hyperlipidemia. 4. Basal skin cancer. 5. Colon cancer, status post resection. 6. Bilateral knee replacements. MEDICATIONS: 1. Glucophage 500 mg daily. 2. Amlodipine 5 mg daily. 3. Aldactone 25 mg daily. 4. Multivitamin 1 tablet daily. 5. Lovastatin 20 mg daily. 6. Lisinopril 20 mg daily. 7. Aspirin 81 mg daily though, as mentioned, the patient was not using this essentially for the 3 weeks prior to presentation. ALLERGIES: No known drug allergies. FAMILY HISTORY: Mother of pancreatic cancer in her 70s. Father had heart disease and in his 90s. His grandmother may have had a stroke. SOCIAL HISTORY: He quit smoking in 2001. He has 1 to 2 glasses of wine per night. He is retired and lives in an apartment in his son's house. REVIEW OF SYSTEMS: As per the HPI, otherwise negative. PHYSICAL EXAM: Vital Signs: Temperature 98.6, blood pressure 111/62, heart rate 78, oxygen saturation 95% on room air. On general examination, he is a pleasant, elderly gentleman in no acute distress. His heart is in a regular rate and rhythm with no murmurs, rubs, or gallops. There are no carotid bruits. Lungs are clear to auscultation bilaterally. On neurologic examination, he is fully awake, alert, and oriented. Speech is fluent without dysarthria or aphasia. He was able to name objects on stroke cards appropriately, but had some trouble naming a cactus. He was able to describe the [employer] picture without any obvious visual field difficulties. He did have significant difficulty reading off the stroke cards but indicated this was improved compared to yesterday. He was noted to often spell words and only then be able to say the word itself. On cranial nerve examination, pupils were equal at 2 mm and reactive to 1.5 mm. On visual field testing, he seems to have a slight right superior quadrant defect, but it was quite difficult to detect on confrontational testing at this point. His versions are full without nystagmus. Facial sensation and musculature is full and symmetric. Hearing is intact to finger rub. The palate elevates symmetrically and the tongue is midline. On motor examination, he has normal bulk and tone in the upper and lower extremities. Strength is full proximally and distally with no pronator drift. Sensation is intact to light touch in the upper and lower extremities. Reflexes are 2+ in the upper and lower extremities with downgoing toes bilaterally. [id number] and [id number] are without ataxia. He was not ambulated. DIAGNOSTIC STUDIES/LAB DATA: CBC showed slightly elevated MCV of 99 and MCH of 34, and otherwise relatively unremarkable. His chemistry panel has shown slight hyponatremia to 129 today and chloride of 99 with a glucose of 233 at 9 o 'clock this morning. His cholesterol panel showed triglycerides of 100, total cholesterol 152, LDL 86, and HDL of 46.1. Coagulation studies showed a PTT of 40.9, which is slightly high. His brain CT was personally reviewed and showed subacute infarct in the left occipital lobe with some subacute blood products present. There is no significant mass effect. There is also a small subacute subdural hematoma on the left, which exerts no significant mass effect. Brain MRI was personally reviewed and confirms the presence of a subacute left occipital infarction with some hemorrhagic transformation as well as the presence of left frontal subdural. There are no other areas of infarction evident. His head and neck CTA was also personally reviewed and demonstrates some calcifications in the intracavernous portions of the carotid arteries as well as in the left vertebral artery, but no significant areas of stenosis and no obvious occlusion. Echocardiogram is pending. Telemetry has shown sinus bradycardia and otherwise unremarkable. IMPRESSION: Bridger Robertson is a 76-year-old man with vascular risk factors, who had been off aspirin for approximately 3 weeks and has experienced a subacute left occipital infarct resulting in a right homonymous hemianopsia from which he is recovering well. This has been complicated by some hemorrhagic transformation and also the presence of a subdural hematoma of unclear etiology as he has experienced no head trauma. He was taking both aspirin and ibuprofen over the few days secondary to his headache, so maybe this influenced the development of the subdural. At this point, since he was off aspirin for a few weeks, I do not think we can call him an aspirin failure. His infarct is subacute and the area of hemorrhagic transformation is not large and is resolving. Similarly, the subdural is not large. So, I think he can be started back on a baby aspirin at this point. We should monitor him overnight and if he develops any worsening headache or increase in his visual field defect, he should be re-scanned with a noncontrast head CT immediately. I discussed with him that he should not be driving on discharge and he will need formal reevaluation from Ophthalmology with visual field testing to determine when it will be safe to drive. His LDL is slightly above goal at this point and his lovastatin dose should be increased or medication changed to a more potent statin. Results of the echocardiogram also still need to be followed up. If the patient remains asymptomatic overnight and nothing unexpected is found on the echocardiogram, I think the patient can be discharged from a neurologic perspective tomorrow. I told him he can follow up with me as an outpatient as needed, but should follow up with Rosita Antoine NP , soon after his discharge. Thank you for this consultation. [id number]/CPS #: [id number] WILLI[facility]
[2017-04-16 08:43] VITALS: BP 123/57
[2017-04-16] MEDS: Docusate CAP* 100 MG PO SCH (09:23)
[2017-04-16] MEDS: Aspirin Low Dose CHEW TAB* 81 MG PO SCH (09:23)
[2017-04-16] MEDS: Lisinopril TAB* 10 MG PO SCH (09:23)
[2017-04-16] MEDS: amLODIPine TAB* 5 MG PO SCH (09:23)
--- NOTE | 2017-04-16 19:54 | DS ---
CC: Dr. Cerrato, Ophthalmology; Dr. Carrington, Neurology; Rosita Antoine NP * DISCHARGE SUMMARY: DATE OF ADMISSION: 04/14/17 DATE OF DISCHARGE: 04/16/17 PRIMARY CARE PROVIDER: Rosita Antoine NP DISCHARGE DIAGNOSES: 1. 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 2. Subdural hematoma with no history of recent head trauma. 3. Hyponatremia. 4. Known left bundle branch block. SECONDARY DIAGNOSES: 1. History of left bundle branch block dating back to 2009. 2. History of hypertension. 3. Bilateral knee replacement surgery. 4. Dyslipidemia. 5. Basal skin cancer. 6. Diabetes type 2. 7. Colon cancer, status post resection. MEDICATIONS AT DISCHARGE: Include aspirin 81 mg daily, Mevacor increased dose to 40 mg daily, lisinopril 20 mg daily, multivitamin 1 tablet daily, amlodipine 5 mg daily, metformin 500 mg daily. Medication that is discontinued was Aldactone. Medication with increased dose is Mevacor and the dose was increased from 20 to 40 mg daily. LABORATORY DATA AND STUDIES PERFORMED DURING THE HOSPITAL STAY: Included: On 04/15/17, sodium of 129, potassium of 4.4, chloride 99, carbon dioxide 23, BUN 16, creatinine 0.91. Triglycerides of 100, cholesterol of 152, LDL of 86, and HDL of 46. Transthoracic echocardiogram with bubble study be obtained on 04/14/17 showed EF of 65 with valves functioning well. Bubble study did not demonstrate PFO. CT angiogram of the head and neck obtained on 04/14/17, impression: "Left occipital subacute infarct with hemorrhagic conversion. Left frontoparietal subdural hematoma. There is atherosclerosis of the carotid bifurcation bilaterally without internal carotid artery stenosis. No aneurysms, vascular malformation, occlusion, or stenosis of the visualized intracranial circulation. Emphysema with right apical pleural parenchymal scarring." Brain MRI obtained on 04/14/17, impression: "Subacute to chronic left occipital infarct with with hemorrhagic conversion. Subacute to chronic left frontoparietal subdural hematoma. No infiltration. CONSULTATIONS DURING THE HOSPITAL STAY: Included Dr. Carrington from Neurology. HOSPITALIZATION COURSE: Mr. Robertson is a 76-year-old male with history of diabetes, hypertension, left bundle branch block, who presented to the hospital after he was directed from Dr. Cerrato's office where he was noted to have bilateral homonymous hemianopsia on the right side. The patient has had those symptoms for approximately a week prior to seeing the waterworks chief engineer. CT of the brain performed in the ED at the patient's admission noticed to have subacute subdural hematoma as well as subacute occipital ischemic stroke with hemorrhagic conversion. The patient was admitted to the telemetry monitored bed and noted to have no marked arrhythmias throughout his stay. Dr. Carrington's outpatient consultation recommended MRI and CT angiogram of the head and neck with results grossly unremarkable apart from the above mentioned. The patient's LDL was noted to be slightly elevated above the acceptable range for the patient with ischemic CVA and the patient's Mevacor was increased. The patient's systolic pressures were in the low 100s in this patient who had mild hyponatremia and had been on Aldactone. Aldactone was discontinued and the patient's blood pressure continued to be in 110s by the time of discharge. It is recommended for the patient to have a basic metabolic panel drawn in approximately a week to follow up hyponatremia. The patient stated that he had not taken aspirin for approximately 3 weeks prior to presentation with a subacute CVA. His aspirin was restarted the day prior to discharge and the patient was observed for 24 hours. Neurologically, he improved. He still continues to have very mild visual deficit when looking to the right. He had mild photophobia that resolved. He had almost constant headache for the past week which started resolving by the time of discharge. It is recommended for the patient to be continuing on aspirin at 81 mg on a daily basis. The patient recommended followup with his primary care provider in approximately 4 to 7 days. The patient is recommended to have a repeat CT of the brain in approximately 1 week to follow up CVA and subdural hematoma. Dr. Carrington requested for the patient to be seen in Neurology office as followup with her in approximately 1 to 2 weeks. PHYSICAL EXAM: At the time of discharge, blood pressure of 123/57, heart rate of 60 and regular, respiratory rate 16, oxygen saturation 95% on room air, and temperature 98.4. General: The patient is a very pleasant 76-year-old male who is in no acute distress. Alert, awake, and oriented x3. HEENT: Head atraumatic, normocephalic. Eyes: Pupils are equal, reactive to light and accommodation. Oropharynx is clear. Mucosa moist. Neck: Supple, no JVD. No bruits bilaterally. Cardiovascular: Regular rate and rhythm. No murmurs. Respiratory: Clear to auscultation bilaterally. Abdomen: Soft, nontender, bowel sounds present in all 4 quadrants. Extremities: There is no edema. Pulses +2 bilaterally. There is no clubbing or cyanosis. Neuro Evaluation: By visual confrontation, there was no visual deficit, although the patient still appreciate some mild visual deficits when looking to the right with both eyes. Cranial nerves II through XII grossly intact. Motor strength is 5/5 bilaterally. Gait not impaired. Psychiatric Evaluation: The patient is oriented x3 with no evidence of anxiety or depression. Please note that this is a short summary of the patient's hospitalization. Please refer to further medical records for details. TIME SPENT: Approximately 40 minutes was spent on the patient's discharge. [id number]/[facility] #: [id number] MTDD
== END 2017-04-16 11:55 | disposition home or self-care (01) | DRG 64 ==
LOC: ED 14:48 → MEDTELE 17:09
PROVIDERS: ADMIT Internal Medicine; ATTEND Internal Medicine
DX: I62.02 Nontraumatic subacute subdural hemorrhage (principal); I63.9 Cerebral infarction, unspecified; E87.1 Hypo-osmolality and hyponatremia; I61.8 Other nontraumatic intracerebral hemorrhage; I10 Essential (primary) hypertension; Z96.641 Presence of right artificial hip joint; Z96.653 Presence of artificial knee joint, bilateral; E78.5 Hyperlipidemia, unspecified; I44.7 Left bundle-branch block, unspecified; J43.9 Emphysema, unspecified; H53.142 Visual discomfort, left eye; H53.461 Homonymous bilateral field defects, right side; H53.8 Other visual disturbances; E11.9 Type 2 diabetes mellitus without complications; I65.23 Occlusion and stenosis of bilateral carotid arteries; Z87.891 Personal history of nicotine dependence; Z85.038 Personal history of other malignant neoplasm of large intestine; Z85.828 Personal history of other malignant neoplasm of skin; Z80.0 Family history of malignant neoplasm of digestive organs; Z82.49 Family history of ischemic heart disease and other diseases of the circulatory system; Z79.82 Long term (current) use of aspirin; Z79.84 Long term (current) use of oral hypoglycemic drugs
CPT/HCPCS: 36415; 70450; 70496; 70498; 70551; 71010; 80048; 80053; 80061; 84484; 85025; 85610; 85730; 93005; 93306; A9270-GY; Q9967

== ENCOUNTER 2017-04-30 14:12 | Inpatient (IN) | payer MEDICARE ==
--- NOTE | 2017-04-30 15:18 | ED ---
Grzegorz Hernandez Benjamin, scribed for Michel Almaguer MD on 04/30/17 at 1437 . Headache - HPI Summary HPI Summary: 77yo male c/o LIN for a week that is not going away. Pt was seen at [facility] earlier today and his CT brain there showed increased brain bleeding. Pt was seen on for a brain bleed. Pt states that his brain bleed was dxed as he was seen for his right eye RUQ vision blindness. Pt denies any change or worsening in symptoms, just states that his LIN is not going away. Pt denies any trouble walking. - History Of Current Complaint Chief Complaint: EDHeadache Stated Complaint: POSS BRAIN BLEED SENT FROM Time Seen by Provider: 04/30/17 14:24 Hx Obtained From: Patient Onset/Duration: Started weeks ago - 1 week, Still Present - Allergies/Home Medications Allergies/Adverse Reactions: Allergies Allergy/AdvReac Type Severity Reaction Status Date / Time No Known Allergies Allergy Verified 04/30/17 14:14 PMH/Surg Hx/FS Hx/Imm Hx Endocrine/Hematology History: Denies: Hx Diabetes, Hx Thyroid Disease Cardiovascular History: Reports: Hx Hypertension Denies: Hx Pacemaker/ICD Musculoskeletal History: Reports: Hx Arthritis - RIGHT HIP, LEFT KNEE Sensory History: Reports: Hx Contacts or Glasses - READING Denies: Hx Hearing Aid Opthamlomology History: Reports: Hx Contacts or Glasses - READING Neurological History: Denies: Hx Headaches Psychiatric History: Denies: Hx Anxiety, Hx Panic Disorder - Cancer History Cancer Type, Location and Year: COLON - Surgical History Surgery Procedure, Year, and Place: 2001 COLON RESECTION FOR [place]. 2010 RIGHT THR PETALUMA; [place] HIP REPLACEMENT @ [place]; [place] [facility] [place] [facility] [place] Anesthesia Reactions: Yes - SEE NURSING NOTES Infectious Disease History: No Infectious Disease History: Denies: Traveled Outside the [place] in Last 30 Days - Social History Alcohol Use: None Substance Use Type: Reports: None Smoking Status (MU): Former Smoker Amount Used/How Often: 2 PACKSA/DAY FOR 30 YRS Length of Time of Smoking/Using Tobacco: 30 YRS Review of Systems Constitutional: Negative Positive: Other - right eye RUQ vision impairment ENT: Negative Cardiovascular: Negative Respiratory: Negative Gastrointestinal: Negative Genitourinary: Negative Musculoskeletal: Negative Skin: Negative Positive: Headache Psychological: Normal All Other Systems Reviewed And Are Negative: Yes Physical Exam Triage Information Reviewed: Yes Vital Signs On Initial Exam: Initial Vitals Temp Pulse Resp BP Pulse Ox 98.2 F 68 16 160/70 97 04/30/17 14:14 04/30/17 14:14 04/30/17 14:14 04/30/17 14:14 04/30/17 14:14 Vital Signs Reviewed: Yes Appearance: Positive: Well-Appearing, No Pain Distress, Well-Nourished Skin: Positive: Warm, Skin Color Reflects Adequate Perfusion, Dry Head/Face: Positive: Normal Head/Face Inspection Eyes: Positive: Other: - right eye RUQ vision blindness ENT: Positive: Normal ENT inspection Neck: Positive: Supple, Nontender Respiratory/Lung Sounds: Positive: Clear to Auscultation, Breath Sounds Present Cardiovascular: Positive: RRR Abdomen Description: Positive: Nontender, Soft Bowel Sounds: Positive: Present Musculoskeletal: Positive: Strength/ROM Intact Neurological: Positive: Sensory/Motor Intact, Alert, Oriented to Person Place, Time, CN Intact II-III, Finger to Nose - normal Psychiatric: Positive: Affect/Mood Appropriate Diagnostics - Vital Signs Vital Signs Temp Pulse Resp BP Pulse Ox 04/30/17 14:23 97.5 F 69 19 161/69 20 04/30/17 14:14 98.2 F 68 16 160/70 97 - Laboratory Lab Statement: Any lab studies that have been ordered have been reviewed, and results considered in the medical decision making process. Headache Course/Dx - Course Course Of Treatment: Reviewed pt's medications list and allergies. Discussed with Dr. Maya (Neurosurgery) at 14:34 for neurosurgery consult. Discussed with Dr. Jimenez (hospitalist) at 14:48 for admission. Assessment/Plan: Mr. Robertson was seen on the for a LIN and visual field cut after referral from an Opthalmologist. He was diagnosed with a subacute occipital CVA with some mild heemoffhagicc transformation. His LIN continued although he thinks his vision is a little better. He had a CT today as an outpatient and was noted to have bled a good deal more. He is being addmittede to the hospitalist service with a consult by Dr. Maya. - Diagnoses Provider Diagnoses: Intracerebellar and posterior fossa hemorrhage - Critical Care Time Critical Care Time: 30-74 min Discharge - Discharge Plan Condition: Stable Disposition: ADMITTED TO [facility] Referrals: Rosita Antoine, [employer] [Primary Care Provider] - The documentation as recorded by the Grzegorz douglass Benjamin accurately reflects the service I personally performed and the decisions made by me, Michel Almaguer MD.
[2017-04-30 15:28] LABS: Hematocrit 45 % (42-52); Hemoglobin 15.5 g/dl (14.0-18.0); Mean Corpuscular HGB Conc 34 g/dl (31-36); Mean Corpuscular Hemoglobin 34 pg (27-31); Mean Corpuscular Volume 100 fL (80-94); Mean Platelet Volume 8 um3 (7.4-10.4); Red Blood Count 4.56 10^6/ul (4.0-5.4); Red Cell Distribution Width 13 % (10.5-15); White Blood Count 7.3 10^3/ul (3.5-10.8)
[2017-04-30] MEDS ORDERED: Morphine INJ* 2 MG/ML 1 ML SYRINGE IV PRN (15:29)
[2017-04-30] MEDS ORDERED: Dextrose 50% Syringe 50 ML* 25 GM/50 ML SYRINGE IV PUSH PRN (15:33)
[2017-04-30 15:40] LABS: Albumin 4.4 g/dL (3.2-5.2); BUN/Creatinine Ratio 12.8 (8-20); Calcium 9.6 mg/dL (8.6-10.3); EGFR African American 124.1 (>60); EGFR Non-African American 96.5 (>60); Globulin 2.9 g/dL (2-4); Potassium 3.8 mmol/L (3.5-5.0); Total Bilirubin 0.6 mg/dL (0.2-1.0); Total Protein 7.3 g/dL (6.4-8.9)
[2017-04-30] MEDS ORDERED: Gadoteridol* (CONTRAST) 279.3 MG/ML 10 ML IV ONE (17:16)
[2017-04-30] MEDS: Insulin LISPRO* 1 UNITS UNIT SUBCUT SCH ×2 (17:59→21:07)
--- NOTE | 2017-04-30 18:15 | CONSULT ---
Consult Consult: Neurosurgery Consult Date of consult: 04/30/17 Date of admission: 04/30/17 Reason for consult: Occipital lobe hemorrhage Referring provider: Michel Almaguer MD HPI: This is a 77 year old male with medical history significant for diabetes, HTN, hyperlipidemia, and colon cancer who presented to [place] [facility] [place] ED after follow up CT brain showed worsening of occipital lobe hemorrhage. He states that he was admitted last week for the same issue and was sent home after 2 days to continue following with Dr. Carrington and his PCP. He presented to the ED on with complaint of several days of visual disturbance in the upper right field of vision and headache. Vision change began suddenly and was consistent in characteristic. He describes right upper deficit in both eyes with a right upper flashing/fluttering disturbance only in the right eye. The headache is a frontal pressure sensation, worse with sudden movements or bending over. He reports that he was on vacation recently and stopped taking his aspirin during that time which was approximately 3 weeks. He initially believed he was having a migraine although he has no history of this. He took tylenol and aspirin for the headache. After several days, he contacted his PCP who recommended seeing an bull ladle tender for evaluation. The bull ladle tender recommended going to the ED because he believed symptoms were related to a stroke. He was diagnosed with a left subacute occipital lobe infarct with a hemorrhagic component. He was restarted on aspirin while in the hospital and was discharged home. Currently, symptoms have not worsened or improved since discharge from the hospital. He continues to experience vision disturance and headache. He also describes that he is unable to read stating that he can see the words on the page but it is like they are in a foreign language. This has been present since onset of vision changes as well. He reports poor appetite for the past several weeks throughout this episode. He denies changes in hearing and speech, difficulty swallowing, unsteady gait, lightheadedness, dizziness, nausea, vomiting, abdominal pain; numbness, tingling, weakness and pain in the bilateral upper and lower extremities. Denies head trauma and recent falls. Past medical history: 1. HTN 2. HLD 3. Diabetes 4. Colon cancer Home medications: 1. Aspirin EC Low Dose* [Ecotrin EC Low Dose 81 MG*] 81 mg PO DAILY 04/14/17 [ History Confirmed 04/30/17] 2. Lisinopril TAB* [Prinivil TAB 10 MG*] 20 mg PO DAILY 04/14/17 [History Confirmed 04/30/17] 3. Multivitamins/Minerals TAB* [Theragran/minerals TAB*] 1 tab PO DAILY [History Confirmed 04/30/17] 4. amLODIPine TAB* [Norvasc 5 mg TAB*] 5 mg PO DAILY 04/14/17 [History Confirmed 04/30/17] 5. metFORMIN* [Glucophage 500 MG TAB *] 500 mg PO DAILY 04/14/17 [History Confirmed 04/30/17] 6. Lovastatin [Mevacor] 40 mg PO DAILY #30 tab 04/16/17 [Rx Confirmed 04/30/17] Allergies: No known allergies Social history: This patient lives alone in an apartment in [place] that is connected to his son's house. He is a nonsmoker and only occasionally consumes alcohol. ROS: Full ROS completed. Pertinent findings stated in HPI, all others negative. Physical exam: Vital Signs: Temp Pulse Resp BP Pulse Ox 98.0 F 74 22 150/64 97 04/30/17 16:23 04/30/17 18:00 04/30/17 18:00 04/30/17 16:45 04/30/17 18:00 General: Alert and oriented. No distress. Laying comfortably on the stretcher. HEENT: Head is normocephalic and atraumatic. PERRL, EOMI. Gross hearing intact. Moist mucus membranes. Neck: Supple, symmetric and nontender. CV: Radial pulses 2+, pedal pulses palpable. Lungs: Breathing is nonlabored. Lungs are clear. Abdomen: The abdomen is mildly rounded. Normoactive bowel sounds. Abdomen is soft, nontender and nondistended. Neuro: Speech is clear and coherent. CN II-XII intact with the exception of right homonymous hemianopsia. Visual rivera intact. Sensation intact to light touch in upper and lower extremities. Strength 5/5 in upper and lower extremities. Finger to nose coordination intact. No pronator drift. Hoffmans negative. Extremities: Full ROM throughout Imagin. CT brain on 04/30/17 shows large left occipital lobe hemorrhage, increased in size since previous CT on 04/14/17. Assessment: This is a 77 year old male with past medical history significant for diabetes, HNT, HLD, colon cancer and recent left occipital CVA who presented for a second time with visual disturbance and headache after follow up CT brain showed worsening hemorrhage. Symptoms have remained consistent since discharge on 04/16/17. Right homonymous hemianopsia on exam. It is currently unclear whether this is an infarct or tumor with hemorrhagic component. Plan: 1. MRI brain W/WO 2. Neuro checks 3. Pain management of headache
[2017-04-30] MEDS: Acetaminophen TAB* 325 MG PO PRN (19:59)
[2017-04-30 20:04] LABS: Urine Bilirubin Negative (Negative); Urine Glucose 2+(150 mg/dL) (Negative); Urine Nitrite Negative (Negative)
[2017-04-30] MEDS ORDERED: Atorvastatin* 20 MG TAB PO SCH (21:00)
--- NOTE | 2017-04-30 21:39 | HP ---
CC: Dr. Maya; Dr. Reyes; Dr. Carrington; Rosita Antoine NP; Dr. Cerrato * HISTORY AND PHYSICAL: DATE OF ADMISSION: 04/30/17 PRIMARY CARE PROVIDER: Rosita Antoine NP CHIEF COMPLAINT: Abnormal CT of the brain. HISTORY OF PRESENT ILLNESS: Mr. Robertson is a 77-year-old male who was evaluated in our facility at discharge on 04/16/17 after a diagnosis of small subdural hematoma and ischemic CVA with hemorrhaging conversion. The consequence of the stroke was right homonymous hemianopsia and it had been improving by the time of the patient's discharge on 04/16/17. During the patient's hospital stay, we consulted Neurology and recommendation was to restart aspirin at discharge. The patient was planned to have an outpatient CT a week after his discharge for a followup. His routine outpatient CT was performed today and showed increasing hemorrhage in the area that was involved prior. The patient himself stated that although his vision is slowly improving, he continues to have headaches, worse when he leans forward and bends down. He also stated that his head feels "not all the way clear." He had not been driving since his discharge. Dr. Maya was called by the ED physician and a discussion was that there is a question of a mass in the area of the bleed involved. An MRI of the brain with and without contrast is going to be obtained. Dr. Maya will see the patient in consultation. PAST MEDICAL HISTORY: 1. Left occipital infarct resulting in right homonymous hemianopsia, complicated with right hemorrhagic transformation on 04/14/17. 2. Subdural hematoma without history of recent head trauma diagnosed on . 3. Diabetes, type 2. 4. Colon cancer, status post resection. 5. Basal skin cancer. 6. Dyslipidemia. 7. Bilateral knee replacement surgery. 8. Hypertension. 9. History of left bundle branch block dating back to 2009. MEDICATIONS AT HOME: Include: 1. Aspirin 81 mg daily. 2. Metformin 500 mg daily. 3. Amlodipine 5 mg daily. 4. Multivitamin 1 tablet daily. 5. Levaquin 40 mg daily. 6. Lisinopril 20 mg daily. FAMILY HISTORY: Positive for mother with history of pancreatic cancer at the age of 76 and father at the age of 91 secondary to CHF. SOCIAL HISTORY: The patient quit smoking in 2001. There is no history of alcohol or drug use. He is retired and lives in an apartment adjacent to his son's place. His son, Joel Robertson, is his surrogate. The patient is . REVIEW OF SYSTEMS: Please see history of present illness. The patient's right homonymous hemianopsia had been improving ever since discharge. The patient complains of headaches that are frontal, worse with bending down and flexing his neck. The patient denies any focal motor abnormality. He stated that due to his headaches, his appetite had not been that great and maybe he lost a little bit of weight, but he could not further quantify it. All the remaining 14 systems were reviewed with the patient and were otherwise negative. PHYSICAL EXAMINATION GENERAL: The patient is a very pleasant 77-year-old male, who is in no acute distress. Alert, awake, and oriented x3. VITAL SIGNS: Blood pressure of 139/68, heart rate of 62 and regular, respiratory rate 17, oxygen saturation 92% on room air, temperature of 98.0. HEENT: Head: Atraumatic and normocephalic. Eyes: Pupils are equal and reactive to light and accommodation. Oropharynx clear. Mucosa dry. NECK: Supple. No JVD. No bruits bilaterally RESPIRATORY: Clear to auscultation bilaterally. CARDIOVASCULAR: Regular rate and rhythm, no murmur. ABDOMEN: Soft, nontender. Bowel sounds in all 4 quadrants. EXTREMITIES: There is no edema. Pulses 2+ bilaterally. No clubbing or cyanosis. NEUROLOGIC: Speech clear. Cranial nerves II through XII grossly intact. Motor strength is 5/5 bilaterally. [id number], no dysmetria bilaterally. Hand horser up at 5/5 bilaterally. DIAGNOSTIC STUDIES/LAB DATA: Show a white blood cell count of 7.3, hemoglobin 15.5, hematocrit of 45, MCV of 100, and platelets of 267. INR of 0.94. Sodium of 132, potassium 3.8, chloride 100, carbon dioxide 25, BUN 10, creatinine 0.78. Liver function tests were unremarkable. CT of the brain noted today, impression: "Large area of hemorrhage in the left occipital lobe significantly increased in size from prior evaluation with mass effect on the posterior aspect of the left lateral ventricle." ASSESSMENT AND PLAN: 1. Due to worsening of intracranial hemorrhage, the patient's aspirin is going to be held. He is going to be admitted to the intensive care unit and neuro checks every [address] Maya as well as Dr. Reyes to see the patient in consultation. An MRI with and without contrast is going to be obtained today. 2. In regards to the patient's dyslipidemia, the patient is going to be placed on Lipitor while in the hospital. 3. In regards to the patient's hypertension, the patient is going to be continued on his outpatient medications. Currently, he his hypertension is controlled. 4. For DVT prophylaxis, the patient is going to be placed on sequential compression devices since anticoagulation is contraindicated due to intracranial hemorrhage. 5. For diabetes, the patient's metformin is going to be held. He is going to be placed on insulin sliding scale. 6. Code status. Full and the patient's surrogate is his son. TIME SPENT: Approximately 55 minutes was spent on admission of this patient, more than half that time was spent [id number] with the patient doing the interview and physical exam. [id number]/[facility] #: [id number] MTDD
[2017-04-30 22:17] LABS: TSH (Thyroid Stimulating Horm) 1.92 mcIU/mL (0.34-5.60)
[2017-05-01] MEDS: Acetaminophen TAB* 325 MG PO PRN ×4 (00:19→21:07)
--- NOTE | 2017-05-01 01:53 | CONS ---
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 Mr. Robertson's past medical history includes diabetes, hypertension, hyperlipidemia, colon cancer, and basal cell carcinoma who was admitted to [facility] in mid March. He saw Dr. Carrington on 04/15/17 and at that time, he had 1 week of vision that had decreased to the right as well as headache. He had been seen by Dr. Cerrato's office who referred him to hospital for further evaluation for stroke. It was felt he had a stroke with hemorrhagic conversion as well as there was a small amount of frontotemporal subdural bleed. No history of trauma to the head was noted then or now. He had been prescribed aspirin which he had held for a while before this occurred and he also had been taking ibuprofen. Aspirin was restarted on discharge. He was also on lovastatin, which was increased from 20 to 40 mg per the patient's report. Since discharge, he has had continued headache. It can be worse when bending forward. He has had decreased appetite since his symptoms started and has lost a few pounds. There has been no drenching night sweats, high fevers. He has a history of colon cancer from 2000 and he had excision with no chemotherapy and was told he had a cure with many lymph nodes that were sampled. On his last visit, he had a CT of the brain and neck which showed some calcification in the intracavernous portion of the carotid artery and the left vertebral artery. Echocardiogram was a fair study, but showed no clear embolic source. CT of the brain was repeated after discharge to ensure no further bleeding. This was performed 04/30/17. This showed increased blood in the left occipital region with some mass effect and he was referred back in for admission given these findings. Of note, he had previously had an MRI of the brain from 04/14/17, which showed a subacute to chronic left occipital infarct with blood products consistent with hemorrhagic conversion as well as a subacute to chronic left frontoparietal subdural hematoma. The CT scans and MRI scans were reviewed directly. PAST MEDICAL HISTORY: Mr. Bridger Robertson's past medical history includes diabetes; hypertension; colon cancer diagnosed in 2000, treated with excision; hyperlipidemia with recent increase in statin dose; basal cell carcinoma; bilateral hip replacement; recent admission for left HORSE BREEDER stroke with hemorrhagic conversion and a small amount of left frontoparietal subdural bleed. CURRENT MEDICATIONS: 1. Acetaminophen 650 mg p.o. q.4 hours p.r.n. fever or pain. 2. Norvasc 5 mg p.o. daily. 3. Humalog insulin per order subcutaneous. 4. Lisinopril 20 mg p.o. daily. 5. Morphine sulfate 1 mg q.4 hours p.r.n. pain. 6. He was placed on atorvastatin, however, I have held this as discussed below. 7. He was on aspirin 81 mg a day prior to admission, this was stopped. 8. Outpatient dose of statin was lovastatin 40 mg p.o. daily. ALLERGIES: He has no known drug allergies. FAMILY HISTORY: Includes mother who of pancreatic cancer in her late 70s, early 80s. She also had arthritis. Father who of heart disease at 92, in particular congestive heart failure. He has 1 brother who is healthy and an older sister at age 85 with diabetes. He has 1 sister who had a brain tumor, who is doing well. He has 3 children who are healthy. SOCIAL HISTORY: Mr. Robertson stopped smoking in 2001. Prior to that time, he smoked 2 packs a day since he was a child. He drinks alcohol 1 to 2 drinks on an occasional night. He is . He lives in an apartment in his son's house in [place]. Grandchildren are there. REVIEW OF SYSTEMS: There has been vision change and headache as mentioned above. There has been no change in speech, change in hearing, difficulty swallowing. His appetite has been decreased with symptoms, otherwise, there has been no significant weight loss, drenching night sweats or high fevers for an unknown reason. He denies any rashes, petechiae, or bruising. There has been no change in his mood. He denies any new numbness or weakness in arms or legs, change in coordination and gait, change in bowel or bladder habits. PHYSICAL EXAMINATION: On examination, Mr. Robertson's most recent blood pressure was 142/76, his pulse was 77, respiratory rate 21, saturation 96%, and temperature was 98 degrees Fahrenheit. He had a regular cardiac rhythm. His lungs were clear to auscultation. There was no evidence of peripheral edema. He had good peripheral pulses in his feet at 1+. There was some brown induration noted distally and decreased hair distally on his legs. He was awake , alert, articulate. Had normal language and function. Adequate fund of knowledge. He had full extraocular movements with no nystagmus. There was a field cut particularly in the right upper quadrant, some inconsistencies in the right lower quadrant. He had pupils that were equal and responsive to light. His fundi were flat. His facial expression, sensation, and hearing were equal. Palate was upgoing. Tongue was midline. Sternocleidomastoid and trapezius were 5/5 in strength. There was normal bulk and tone. No pronator drift. Full strength in the upper and lower extremities with normal fcgjtc-zx-jxby and zgun-hv-bvuy movements. He denied any asymmetry to pinprick, cold, or light touch. Vibration sensation could briefly be felt at the toes, some at the ankles and decreased at the knees by 15 to 20 seconds. Proprioception was intact. Reflexes were 2+ and symmetric with the exception of the ankles that were absent. Toes were equivocal. His Romberg was wobbly. He could get on his heels and his toes and he was able to walk independent steps forward and backwards forming with a stance of about 4 inches. DIAGNOSTIC STUDIES/LAB DATA: Data includes previous admission with review of Dr. Carrington's consult, review of discharge summary CTA of the brain and neck from 04/14/17, review of the MRI from 04/14/[address] of the brain from 04/30/17. Please see reports for details. These films were reviewed directly. The other data includes CBC with normal white blood cell count, hemoglobin, hematocrit and platelets. His MCV, MCH were slightly elevated. He had a complete metabolic panel which was within normal limits with the exception of the chloride which was low at 100. His INR was 0.94. Looking at his laboratory tests, his last vitamin B12 level was in 2011 and was 683. During his last hospitalization, he had a lipid profile which showed triglycerides of 100, cholesterol 152, LDL 86, HDL 46. 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 This stroke did occur in the setting of him being off aspirin for a period of time. On discharge, he was restarted on a baby aspirin with plans for repeat CT to ensure stability. Unfortunately, there was increased bleed and continued difficulty with headache and vision loss. Accordingly, he has been admitted to the ICU. His aspirin has been held. I have also suggested stopping his atorvastatin given there is a potential for this to cause increased risk of bleed. For now, he should be off NSAIDs. MRI of the brain with contrast is pending to evaluate for an underlying lesion. Education was given regarding differential diagnosis. Given the morphology seen on CT scan and previous MRI, I am suspicious that this is ischemic lesion with hemorrhagic conversion rather than underlying tumor. To completely exclude an underlying lesion, one may need to repeat a scan in 3 months' time with and without contrast. Unfortunately at this point, we will need to stop antiplatelet agents to prevent bleed. This will put him at further risk for ischemic stroke. He is in the ICU and we are monitoring his heart with telemetry. His echocardiogram was fair quality and we may want to consider a transesophageal echocardiogram to look for embolic source as an outpatient. I will ask for TSH, hemoglobin A1c looking at risk factors of stroke, as well as a B12 given the persistently elevated MCV, MCH. TIME SPENT: Over an hour was spent in direct patient care. All questions were answered. [id number]/[facility] #: [id number] WILLIAMS
[2017-05-01] MEDS: amLODIPine TAB* 5 MG PO SCH (07:46)
[2017-05-01] MEDS: Lisinopril TAB* 10 MG PO SCH (07:46)
--- NOTE | 2017-05-01 07:58 | RAD ---
Indication: Intracranial hemorrhage. Evaluate for brain mass. Image sequences: Sagittal and axial T1, axial T2, FLAIR, diffusion and susceptibility weighted images of the brain were obtained. There is a mass in the left posterior temporal lobe measuring 5.9 x 2.1 x 1.8 cm. This is consistent with the patient's known hematoma Focal punctate areas of hemorrhage are noted. There is mild diffuse enhancement of the mass. Increased areas of hemorrhage is noted on prior CT. Vasogenic edema is noted. It is unclear whether the diffuse enhancement due to hematoma or an underlying mass. No midline shift is noted. A small subdural hematoma is noted in the left. IMPRESSION: The patient has a hematoma in the left posterior temporal lobe. Punctate areas of prolonged T1 signal is present with mild diffuse enhancement. It is unclear whether this is due to a neoplastic process or due to hematoma. There is a small subdural hematoma in the left parietal area.
--- NOTE | 2017-05-01 08:09 | PN ---
Subjective Date of Service: 05/01/17 Interval History: HOSPITALIST PROGRESS NOTE Patient seen and examined at bedside. He feels well today. C/o mild right headache, relieved by acetaminophen. No N/ V. Right hemianopsia is unchanged. Denies any other sensory or motor deficits. Family History: Unchanged from Admission Social History: Unchanged from Admission Past Medical History: Unchanged from Admission Objective Active Medications: Acetaminophen (Tylenol Tab*) 650 mg PO Q4H PRN PRN Reason: FEVER/PAIN Last Admin: 05/01/17 05:00 Dose: 650 mg Amlodipine Besylate (Norvasc Tab*) 5 mg PO DAILY [facility] Last Admin: 05/01/17 07:46 Dose: 5 mg Dextrose (D50w Syringe 50 Ml*) 12.5 gm IV PUSH .FOR FS < 60 - SS PRN PRN Reason: FS < 60 Insulin Human Lispro (Humalog*) 0 units SUBCUT ACHS [facility] PRN Reason: Protocol Lisinopril (Prinivil Tab*) 20 mg PO DAILY [facility] Last Admin: 05/01/17 07:46 Dose: 20 mg Morphine Sulfate (Morphine Inj (Syringe)*) 1 mg IV Q4H PRN PRN Reason: PAIN Vital Signs 05/01/17 05/01/17 06:00 07:42 Temperature 98.1 F Pulse Rate Respiratory 16 Rate Blood Pressure 152/68 (mmHg) O2 Sat by Pulse 93 Oximetry Oxygen Devices in Use Now: None Appearance: Elderly male lying in bed in NAD. Eyes: No Scleral Icterus Ears/Nose/Mouth/Throat: Mucous Membranes Moist Neck: Trachea Midline Respiratory: Symmetrical Chest Expansion and Respiratory Effort, Clear to Auscultation Cardiovascular: RRR - Normal S1 and S2 Abdominal: NL Sounds; No Tenderness; No Distention Extremities: No Edema Neurological: Alert and Oriented x 3, NL Muscle Strength and Tone, - - Right hemianopsia (upper Lines/Tubes/Other Access: Clean, Dry and Intact Peripheral IV Nutrition: Taking PO's Result Diagrams: 04/30/17 14:49 04/30/17 14:49 Assess/Plan/Problems-Billing Assessment: Mr. Robertson is a 77yo M with PMH of type 2 DM, HLD, HTN, h/o colon CA s/p ressection, recent admission for Left occipital stroke with hemorrhagic conversion and left frontoparietal SDH, who had a routine follow up CT brain showing increased area of hemorrhage on the left occipital lobe with mass effect. - Patient Problems (1) CVA (cerebral vascular accident) Comment: - Recent admission for ischemic CVA, with hemorrhagic conversion - discharged on ASA and follow up CT showed progression of bleed. - MRI brain reviewed - awaiting Neurology and Neurosurgery input. - Aspirin discontinued. Statin also held as per Neurology recommendation. - Continue neurochecks. (2) DM2 (diabetes mellitus, type 2) Comment: - Metformin held post contrast study. - Hb A.1C 6.4. - Continue Lispro SS. (3) SDH (subdural hematoma) Comment: - Appears to be unchanged. - Continue to monitor. (4) HTN (hypertension) Comment: - Controlled. - Continue Amlodipine and Lisinopril. (5) Hyperlipemia Comment: - Statin held as per Neurology recommendation. (6) DVT prophylaxis Comment: - Pharmacological prophylaxis contraindicated due to ICH. - SCDs. (7) Full code status Status and Disposition: Inpatient.
[2017-05-01] MEDS: Insulin LISPRO* 1 UNITS UNIT SUBCUT SCH ×4 (08:26→21:04)
--- NOTE | 2017-05-02 01:45 | PN ---
FOLLOWUP NOTE: DATE OF FOLLOWUP: 05/01/17 HISTORY OF PRESENT ILLNESS: Bridger Robertson is moved from the ICU to bed floor. He has had no new symptoms. He does have continued headache and fogginess in his head. His blood pressure has been stable. He denies any new visual loss, numbness or weakness of arms or legs, change in coordination or gait. PHYSICAL EXAMINATION: On examination, his blood pressure was 132/62, his pulse was 74, respiratory rate 18, saturation 98%, and temperature 98.1 degrees Fahrenheit. He had a regular cardiac rhythm. His lungs were clear to auscultation. He had full extraocular movements, continued field cuts in the right upper quadrant. His facial expression was symmetric. There was no dysarthria. There was no pronator drift. He had full strength in his upper and lower extremities with normal finger- to-nose and cqiu-ts-qoep movements. His gait was stable. LABORATORY DATA: Includes MRI of the brain, which was reviewed directly, which again shows evidence of hemorrhage in the left occipital, temporal region. One cannot exclude possible underlying lesion as pointed out by Radiology. His B12 was 569, TSH 1.92, ESR 15, hemoglobin A1c 6.4. MEDICATIONS: MAR was reviewed. The patient is no longer on aspirin or statin. IMPRESSION: Mr. Robertson is a 77-year-old gentleman with a history of recent presumed ischemic stroke with hemorrhagic conversion now admitted with increased bleed on CT and continued headache and visual deficit in the setting of resuming baby aspirin. At this point, he is off aspirin and atorvastatin given the potential association with increased bleed. We will continue to monitor him. If he is stable with stable CT in the morning, we plan to discharge home with just a followup with Dr. Carrington in two to four weeks and repeat MRI of the brain with contrast in three months to look for underlying lesion. He is aware that he has increased risk of ischemic stroke. Education was given regarding activity and diet. TIME SPENT: Twenty-five minutes was spent in direct [id number] patient care. Over 50% of the time was spent in counseling about the above topics. All questions were answered. [id number]/[facility] #: [id number] cc: Beulah Carrington MD [facility] HOSPITALMarco
[2017-05-02] MEDS: Acetaminophen TAB* 325 MG PO PRN (06:01)
[2017-05-02 07:57] VITALS: BP 132/68
[2017-05-02] MEDS: amLODIPine TAB* 5 MG PO SCH (08:21)
[2017-05-02] MEDS: Lisinopril TAB* 10 MG PO SCH (08:21)
[2017-05-02] MEDS: Insulin LISPRO* 1 UNITS UNIT SUBCUT SCH (08:22)
--- NOTE | 2017-05-02 09:52 | RAD ---
Indication: Intracranial hemorrhage follow-up. Comparison: April 30, [address] Technique: Noncontrast CT vertex of skull through foramen magnum. Report: Interval decrease in density of the subacute intra-axial hematoma at the LEFT parietal and occipital lobes. No new intra or extra-axial hemorrhage evident. No significant change in mild mass effect with sulcal effacement at the LEFT parietal and a subpleural lobes and mild partial compression of the LEFT lateral ventricle posteriorly relative to the RIGHT. No new intra or extra-axial hemorrhage or new region of hatch matter white matter obscuration evident. Unremarkable basal cisterns. Generalized mild prominence of the cerebral sulci and moderately severe prominence of the cerebellar fissures reflecting atrophy. No fracture or suspicious lesion of the calvarium or skull base evident. Clear visualized paranasal sinuses and mastoid air spaces. Negative for scalp hematoma. IMPRESSION: Interval decrease in density of the subacute intra-axial hematoma at the LEFT parietal and occipital lobes. No new intra or extra-axial hemorrhage evident. No significant change in mild mass effect with sulcal effacement at the LEFT parietal and a subpleural lobes and mild partial compression of the LEFT lateral ventricle posteriorly relative to the RIGHT. No new intra or extra-axial hemorrhage or new region of hatch matter white matter obscuration evident.
--- NOTE | 2017-05-02 23:12 | DS ---
CC: Rosita Antoine NP; Dr. Irasema Carrington; Dr. Reyes; Dr. Maya DISCHARGE SUMMARY: DATE OF ADMISSION: 04/30/17 DATE OF DISCHARGE: 05/02/17 PRIMARY CARE PROVIDER: Rosita Antoine NP NEUROLOGIST: Dr. Irasema Carrington. CONSULTING NEUROLOGIST: Dr. Reyes. CONSULTING NEUROSURGEON: Dr. Maya. DISCHARGE DIAGNOSES: 1. Recent ischemic cerebrovascular accident with hemorrhagic transformation, admitted with worsenin g hemorrhage. 2. Right hemianopsia. 3. Subdural hematoma. SECONDARY DIAGNOSES: 1. Type 2 diabetes. 2. Hyperlipidemia. 3. Hypertension. 4. Colon cancer, status post resection. 5. History of basal cell carcinoma. 6. Status post bilateral knee replacement. 7. History of left bundle branch block since 2009. MEDICATION LIST: 1. Acetaminophen 650 mg p.o. q.4 hours p.r.n. pain or fever. 2. Amlodipine 5 mg p.o. daily. 2. Lisinopril 20 mg p.o. daily. 3. Metformin 500 mg p.o. daily. 4. Multivitamin 1 p.o. daily. 5. Aspirin and lovastatin were discontinued due to his bleed. HOSPITAL COURSE: Mr. Robertson is a 77-year-old male with a past medical history as stated above that was admitted to [facility] from 04/14/17 to 04/16/17. At that time, he was diagnosed with a subacute left occipital infarct complicated by hemorrhagic transformation and subdural hematoma. On discharge, he was started on 81 mg of aspirin and his lovastatin dose was increased to 40 mg. The patient states that his right hemianopsia actually was improving and he has still had some mild headaches. He had CT of the brain done as an outpatient on 04/30/17 and it showed large area of he morrhage in the left occipital lobe significantly increased in size from the prior exam with mass ef fect on the posterior aspect of the lateral ventricle. For this reason, the patient was referred to the emergency room for further evaluation. For more details about his presentation, I refer you to his history and physical. The patient was initially admitted to the intensive care unit, but he had no changes on his neurolog ical checks and remained with stable vital signs. He was seen in consultation by Neurosurgery (Dr. Maya) and his recommendation was for MRI of the brain with and without contrast. He was also seen in consultation by Neurology (Dr. Reyes) and he r impression was that the patient had a history of recent ischemic left ROPING TENDER stroke with hemorrhagic conversion, admitted to the [facility] with extensive workup and course complicated by a small left frontop arietal subdural hematoma. This stroke did occur in the setting of him being off aspirin for a juan od of time. On discharge, he was restarted on baby aspirin with plans for repeat CT to ensure stabil ity. Unfortunately, there was increased bleed and continued difficulty with headache and vision los s. Accordingly, he was admitted to the ICU. Aspirin was held and Dr. Reyes also suggested stoppin g statin given there is a potential for this to cause increased risk of bleed. She also recommended he should be off NSAIDs. She also recommended MRI of the brain with contrast and she felt that looking at his prior CT and pr ior MRI, suspected that he had ischemic lesion with hemorrhage conversion rather than underlying arsen or, but to completely exclude an underlying lesion, her recommendation was to repeat his MRI of the brain in 3 months with and without contrast. Unfortunately, at this point, her recommendation was t o stop antiplatelet agents to prevent further bleeding. The patient understood that this would put him at further risk for ischemic stroke, but he understands the risks and benefits at this time. Mi s echocardiogram was of fair quality on his prior admission and it was felt that a transesophageal e chocardiogram to look for embolic source could be considered as outpatient. She also recommended checking his TSH that was normal at 1.92, vitamin B12 level that was normal at 569 and a hemoglobin A1c that was not that different from before. It is 6.4. The patient remained stable while in the ICU. He was transferred to the telemetry floor and had a repeat CT of the brain on 05/02/17 that showed interval decrease in density of the subacute intraaxial hematoma at the lef t parietal and occipital lobes. There were no new intra or extraaxial hemorrhage evident. Neurology recommendation was for the patient to be discharged home today to be off aspirin and stati n as this will increase his risk of bleeding. The recommendation is for him to follow up with Dr. Edvin tejeda in 2 to 4 weeks and to have a repeat MRI of the brain with contrast in 3 months to look for any signs of underlying lesion. The patient received education about his diagnosis. He understands that he is at increased risk for ischemic stroke as aspirin and statin were stopped, but he understands that continuing those medica tions would increase his risk of bleeding. He was also educated about avoiding all the NSAIDs like M otrin, Aleve, ibuprofen, naproxen as those medications increase the risk of bleeding. The patient is medically stable for discharge at this time and he was advised to continue to avoid d riving like he had been advised on his prior admission. PHYSICAL EXAMINATION: Vital Signs: Temperature 97.5, heart rate is 71, respiratory rate is 18, oxy gen saturation 97% on room air, blood pressure is 132/68. General: The patient is a pleasant elder ly male, sitting up in bed, in no acute distress. CVS: Normal S1, S2. Regular rate and rhythm. C hest: Breath sounds present bilaterally with no added sounds. Extremities: No edema. Neuro: He i s alert, awake and oriented x3. Able to move all 4 extremities with no deficits. He has unchanged right hemianopsia. DIET: Heart healthy consistent carb diet. ACTIVITIES: As tolerated. DISPOSITION: To home. STATUS WHILE IN HOSPITAL: Inpatient. Please keep in mind that this is a summarized version of this patient's complex hospital stay. If y ou need more information, please feel free to call me at [phone] or please obtain the full [facility] records. TIME SPENT: Approximately 45 minutes were spent to complete this discharge. [id number]/[facility] #: [id number]
== END 2017-05-02 12:45 | disposition home or self-care (01) | DRG 66 ==
LOC: ED 14:12 → ICU 14:58 → MEDTELE 05-01 12:51
PROVIDERS: ADMIT Internal Medicine; ATTEND Internal Medicine
DX: I62.02 Nontraumatic subacute subdural hemorrhage (principal); H53.462 Homonymous bilateral field defects, left side; E11.9 Type 2 diabetes mellitus without complications; I44.7 Left bundle-branch block, unspecified; I61.1 Nontraumatic intracerebral hemorrhage in hemisphere, cortical; I10 Essential (primary) hypertension; E78.5 Hyperlipidemia, unspecified; Z96.653 Presence of artificial knee joint, bilateral; Z79.82 Long term (current) use of aspirin; Z79.84 Long term (current) use of oral hypoglycemic drugs; Z79.899 Other long term (current) drug therapy; Z80.0 Family history of malignant neoplasm of digestive organs; Z82.49 Family history of ischemic heart disease and other diseases of the circulatory system; Z87.891 Personal history of nicotine dependence; Z85.038 Personal history of other malignant neoplasm of large intestine; Z85.828 Personal history of other malignant neoplasm of skin; Z82.61 Family history of arthritis; Z83.3 Family history of diabetes mellitus
CPT/HCPCS: 36415; 70450; 70553; 80053; 81003; 82607; 83036; 83605; 84443; 85025; 85610; 85652; 86038; 87641; 93005; A9270-GY; A9579

== ENCOUNTER 2017-11-26 10:08 | Day surgery (SDC) | payer MEDICARE ==
[~2017-11-26 10:08] MED LIST: Buffered Lidocaine 0.9% SYRIN* 5 ML/SYR SYRINGE INTRADERM ONE; Famotidine IV* 10 MG/ML 2 ML (20 mg) IV ONE
[2017-11-26] MEDS ORDERED: Buffered Lidocaine 0.9% SYRIN* 5 ML/SYR SYRINGE ONE (11:58)
[2017-11-26] MEDS ORDERED: Famotidine IV* 10 MG/ML 2 ML (20 mg) ONE (11:58)
[2017-11-26] MEDS ORDERED: ceFAZolin 2 GM in 100 MLS NS (*) BAG IVPB ONE (12:10)
[2017-11-26] MEDS ORDERED: Lidocaine 1% MPF wEPI 200,000* 30 ML SDV ONE (13:17)
[2017-11-26] MEDS ORDERED: Midazolam* 1 MG/ML 5 ML VIAL (5 MG) ONE (13:23)
[2017-11-26] MEDS ORDERED: Propofol* 10 MG/ML 20 ML BTL IV PUSH ONE (13:46)
[2017-11-26] MEDS ORDERED: Lidocaine 2% PF * 5 ML VIAL ONE (13:46)
[2017-11-26] MEDS ORDERED: KETAMINE HCL* 50 MG/ML 10 ML VIAL ONE (13:48)
[2017-11-26] MEDS ORDERED: Ketorolac INJ* 30 MG/ML 1 ML VIAL ONE (13:48)
[2017-11-26] MEDS ORDERED: Mineral Oil Sterile, TOPICAL* 25 ML BTL ONE (13:51)
[2017-11-26] MEDS ORDERED: Acetaminophen TAB* 325 MG PO PRN (14:25)
[2017-11-26] MEDS ORDERED: Naloxone* 0.4 MG/ML 1 ML VIAL IV PRN (14:25)
[2017-11-26] MEDS ORDERED: oxyCODONE TAB* 5 MG TAB PO PRN (14:25)
[2017-11-26] MEDS ORDERED: DiMENhydriNATE IV* 50 MG/ML VIAL IV PUSH PRN (14:25)
[2017-11-26 15:05] VITALS: BP 130/63
== END 2017-11-26 15:17 | disposition home or self-care (01) ==
LOC: OREAST 10:08
PROVIDERS: ATTEND Plastic Surgery
DX: C44.311 Basal cell carcinoma of skin of nose (principal); I10 Essential (primary) hypertension; Z87.891 Personal history of nicotine dependence; I69.298 Other sequelae of other nontraumatic intracranial hemorrhage; E11.9 Type 2 diabetes mellitus without complications; Z79.84 Long term (current) use of oral hypoglycemic drugs; Z85.038 Personal history of other malignant neoplasm of large intestine; Z85.828 Personal history of other malignant neoplasm of skin
CPT/HCPCS: A9270-GY; J1885; J2001; J2250; J2704

== ENCOUNTER 2017-11-28 11:02 | Emergency (ER) | payer MEDICARE ==
[2017-11-28 11:56] LABS: ABS Basophils 0.1 10^3/ul (0-0.2); ABS Eosinophils 0 10^3/ul (0-0.6); ABS Lymphocytes 1.1 10^3/ul (1.0-4.8); ABS Monocytes 0.6 10^3/ul (0-0.8); ABS Neutrophils 5.1 10^3/ul (1.5-7.7); ABS Nucleated RBC 0 10^3/ul; Eosinophil % 0.6 % (0-6); Hematocrit 44 % (42-52); Hemoglobin 15.2 g/dl (14.0-18.0); Lymphocyte % 15.7 % (25-47); Mean Corpuscular HGB Conc 35 g/dl (31-36); Mean Corpuscular Hemoglobin 34 pg (27-31); Mean Corpuscular Volume 97 fL (80-94); Mean Platelet Volume 8 um3 (7.4-10.4); Nucleated Red Blood Cells % 0; Platelet Count 213 10^3/ul (150-450); Red Blood Count 4.52 10^6/ul (4.0-5.4); Red Cell Distribution Width 13 % (10.5-15); White Blood Count 6.9 10^3/ul (3.5-10.8)
[2017-11-28 12:04] LABS: INR 1.01 (0.77-1.02)
[2017-11-28] MEDS ORDERED: Iodixanol* (CONTRAST) 320 MG/ML 100 ML SDV IV ONE (12:11)
--- NOTE | 2017-11-28 12:32 | RAD ---
HISTORY: Chest pain COMPARISONS: None relevant TECHNIQUE: Multiple contiguous axial CT scans of the chest were obtained after the administration of nonionic intravenous contrast, timed to the pulmonary arterial phase of contrast enhancement.. Coronal and sagittal multiplanar reformations are also submitted for review. FINDINGS: NECK AND THYROID: The lower neck and thyroid are unremarkable. CHEST WALL: There is no lower cervical, axillary, or supraclavicular lymphadenopathy by size criteria. There is bilateral gynecomastia HEART AND PERICARDIUM: Coronary and valvular cardiac calcifications are noted. AORTA AND PULMONARY VASCULATURE: There is no pulmonary arterial filling defect to suggest pulmonary embolism. There is no linear filling defect within the aorta to suggest aortic dissection. There is atherosclerosis of the thoracic aorta. MEDIASTINUM: There is no mediastinal lymphadenopathy by size criteria. JOHN: There is no hilar lymphadenopathy by size criteria. AIRWAY AND ESOPHAGUS: The airway is unremarkable, without endobronchial filling defect. The esophagus is grossly normal. LUNG PARENCHYMA: There is biapical fibrotic change and centrilobular emphysematous change. There is dependent atelectasis bilaterally PLEURA: No pleural abnormalities are noted. UPPER ABDOMEN: The upper abdomen is unremarkable. BONES AND SOFT TISSUES: Mild degenerative changes are noted. OTHER: None. IMPRESSION: 1. NO PULMONARY ARTERIAL FILLING DEFECT TO SUGGEST PULMONARY EMBOLISM. 2. ATHEROSCLEROSIS.
[2017-11-28 15:25] VITALS: BP 150/61
--- NOTE | 2017-11-29 12:08 | ED ---
Demario Hernandez Stephanie, scribed for Michel Almaguer MD on 11/28/17 at 1123 . HPI Chest Pain - HPI Summary HPI Summary: The pt is a 77 y/o M presenting to the ED with c/o intermittent R sided chest pain that began at 12:00 on 11/27/17. The pt states his CP last about 15 seconds. The pt denies pain with breathing, nausea, lightheadedness and SOB. The pt states he had facial surgery on 11/26/17 and was referred to ED by Dr. Rios. - History of Current Complaint Chief Complaint: EDChestWallPain Time Seen by Provider: 11/28/17 11:04 Hx Obtained From: Patient Onset/Duration: Started Days Ago - 1 Timing: Intermittent, Lasting Seconds - 15 Current Severity: Mild Pain Intensity: 0 Pain Scale Used: 0-10 Numeric Chest Pain Location: Diffuse Chest Pain Radiates: No Aggravating Factor(s): Nothing Alleviating Factor(s): Nothing Associated Signs and Symptoms: Positive: Other: - Negative: pain with breathing. Negative: Shortness of Breath, Lightheadedness, Nausea - Additional Pertinent History Primary Care Physician: [id number] - Allergy/Home Medications Allergies/Adverse Reactions: Allergies Allergy/AdvReac Type Severity Reaction Status Date / Time No Known Allergies Allergy Verified 11/26/17 12:35 Home Medications: Home Medications Aspirin EC Low Dose* [Ecotrin EC Low Dose 81 MG*] 81 mg PO QAM 11/28/17 [ History Confirmed 11/28/17] Lovastatin (NF) [Mevacor (NF)] 40 mg PO BEDTIME 11/28/17 [History Confirmed 12/13] PMH/Surg Hx/FS Hx/Imm Hx Endocrine/Hematology History: Reports: Hx Diabetes - TYPE 2- METFORMIN DAILY Denies: Hx Thyroid Disease Cardiovascular History: Reports: Hx Hypercholesterolemia, Hx Hypertension - CONTROLLED, Other Cardiovascular Problems/Disorders - 04/13 LBBB, HYPERLIPIDEMIA , CVA Denies: Hx Pacemaker/ICD GI History: Reports: Other GI Disorders - COLON CA WITH COLECTOMY 2000 History: Denies: Hx Renal Disease Musculoskeletal History: Reports: Other Musculoskeletal History - BILATERAL TOTAL HIP REPLACEMENT, DJD Denies: Hx Arthritis Sensory History: Reports: Hx Contacts or Glasses - READING, Hx Vision Problem - ICH, trouble seeing upper right both eyes Denies: Hx Cataracts, Hx Glaucoma, Hx Hearing Aid Opthamlomology History: Reports: Hx Contacts or Glasses - READING, Hx Vision Problem - ICH, trouble seeing upper right both eyes Denies: Hx Cataracts, Hx Glaucoma Neurological History: Reports: Hx Headaches, Other Neuro Impairments/Disorders - Currenlty hospitalized with an ICH Psychiatric History: Denies: Hx Anxiety, Hx Panic Disorder - Cancer History Cancer Type, Location and Year: COLON. SKIN Hx Chemotherapy: No - Surgical History Surgery Procedure, Year, and Place: COLON RESECTION FOR CA- 2000- [place]. BILAT BLEPHAROPLASTY-2009- [facility] [place]. RIGHT TOTAL HIP REPLACEMENT- 2010- [place]. LEFT TOTAL HIP REPLACEMENT- 2012- [facility] [place]. MULTIPLE BASAL CELL SKIN CA- FACE, ARMS , HANDS Hx Anesthesia Reactions: No Infectious Disease History: No Infectious Disease History: Denies: Traveled Outside the in Last 30 Days - Family History Known Family History: Positive: Diabetes, Other - cancer - Social History Occupation: Retired Lives: Alone Alcohol Use: None Substance Use Type: Reports: None Smoking Status (MU): Former Smoker Type: Cigarettes Amount Used/How Often: 2 PPD FOR "MANY YEARS" Length of Time of Smoking/Using Tobacco: "MANY YEARS" Have You Smoked in the Last Year: No Review of Systems Negative: Fever Positive: Chest Pain Positive: Other - Negative: pain with breathing. Negative: Shortness Of Breath Negative: Nausea Neurological: Other - Negative: lightheadedness All Other Systems Reviewed And Are Negative: Yes Physical Exam - Summary Physical Exam Summary: Appearance: The patient is well-nourished in no acute distress and in no acute pain. Skin: The skin is warm and dry and skin color reflects adequate perfusion. Wound on R shoulder from skin graft. HEENT: The head is normocephalic and atraumatic. The pupils are equal and reactive. The conjunctivae are clear and without drainage. Nares are patent and without drainage. Bandaged wound on nose that is clean around the edges. Mouth reveals moist mucous membranes and the throat is without erythema and exudate. The external ears are intact. The ear canals are patent and without drainage. The tympanic membranes are intact. Neck: the neck is supple with full range of motion and non-tender. There are no carotid bruits. There is no neck vein distension. Respiratory: Chest is non-tender. Lungs are clear to auscultation and breath sounds are symmetrical and equal. Cardiovascular: Heart is regular rate and rhythm. There is no murmur or rub auscultated. There is no peripheral edema and pulses are symmetrical and equal. Abdomen: The abdomen is soft and non-tender. There are normal bowel sounds heard in all four quadrants and there is no organomegaly palpated. Musculoskeletal: There is no back tenderness noted. Extremities are non-tender with full range of motion. There is good capillary refill. There is no peripheral edema or calf tenderness elicited. Neurological: Patient is alert and oriented to person, place and time. The patient has symmetrical motor strength in all four extremities. Cranial nerves are grossly intact. Deep tendon reflexes are symmetrical and equal in all four extremities. Psychiatric: The patient has an appropriate affect and does not exhibit any anxiety or depression. Triage Information Reviewed: Yes Vital Signs On Initial Exam: Initial Vitals Temp Pulse Resp BP Pulse Ox 98.0 F 75 16 154/64 98 11/28/17 11:06 11/28/17 11:06 11/28/17 11:06 11/28/17 11:06 11/28/17 11:06 Vital Signs Reviewed: Yes Diagnostics - Vital Signs Vital Signs Temp Pulse Resp BP Pulse Ox 11/28/17 11:06 98.0 F 75 16 154/64 98 - Laboratory Lab Results: Lab Results 11/28/17 11/28/17 11/28/17 Range/Units 11:45 11:45 11:45 WBC 6.9 (3.5-10.8) 10^3/ul RBC 4.52 (4.0-5.4) 10^6/ul Hgb 15.2 (14.0-18.0) g/dl Hct 44 (42-52) % MCV 97 H (80-94) fL MCH 34 H (27-31) pg MCHC 35 (31-36) g/dl RDW 13 (10.5-15) % Plt Count 213 (150-450) 10^3/ul MPV 8 (7.4-10.4) um3 Neut % (Auto) 73.9 (38-83) % Lymph % (Auto) 15.7 L (25-47) % Collier % (Auto) 8.8 H (0-7) % Eos % (Auto) 0.6 (0-6) % Baso % (Auto) 1.0 (0-2) % Absolute Neuts (auto) 5.1 (1.5-7.7) 10^3/ul Absolute Lymphs (auto) 1.1 (1.0-4.8) 10^3/ul Absolute Monos (auto) 0.6 (0-0.8) 10^3/ul Absolute Eos (auto) 0 (0-0.6) 10^3/ul Absolute Basos (auto) 0.1 (0-0.2) 10^3/ul Absolute Nucleated RBC 0 10^3/ul Nucleated RBC % 0 INR (Anticoag Therapy) 1.01 (0.77-1.02) Sodium 132 L (133-145) mmol/L Potassium 4.2 (3.5-5.0) mmol/L Chloride 101 (101-111) mmol/L Carbon Dioxide 24 (22-32) mmol/L Anion Gap 7 (2-11) mmol/L BUN 14 (6-24) mg/dL Creatinine 0.88 (0.67-1.17) mg/dL Est GFR ( Amer) 108.0 (>60) Est GFR (Non-Af Amer) 84.0 (>60) BUN/Creatinine Ratio 15.9 (8-20) Glucose 180 H (70-100) mg/dL Lactic Acid (0.5-2.0) mmol/L Calcium 9.3 (8.6-10.3) mg/dL Total Bilirubin 0.50 (0.2-1.0) mg/dL AST 16 (13-39) U/L ALT 14 (7-52) U/L Alkaline Phosphatase 41 (34-104) U/L Troponin I 0.00 (<0.04) ng/mL Total Protein 6.6 (6.4-8.9) g/dL Albumin 4.1 (3.2-5.2) g/dL Globulin 2.5 (2-4) g/dL Albumin/Globulin Ratio 1.6 (1-3) 11/28/17 11/28/17 Range/Units 11:45 14:24 WBC (3.5-10.8) 10^3/ul RBC (4.0-5.4) 10^6/ul Hgb (14.0-18.0) g/dl Hct (42-52) % MCV (80-94) fL MCH (27-31) pg MCHC (31-36) g/dl RDW (10.5-15) % Plt Count (150-450) 10^3/ul MPV (7.4-10.4) um3 Neut % (Auto) (38-83) % Lymph % (Auto) (25-47) % Collier % (Auto) (0-7) % Eos % (Auto) (0-6) % Baso % (Auto) (0-2) % Absolute Neuts (auto) (1.5-7.7) 10^3/ul Absolute Lymphs (auto) (1.0-4.8) 10^3/ul Absolute Monos (auto) (0-0.8) 10^3/ul Absolute Eos (auto) (0-0.6) 10^3/ul Absolute Basos (auto) (0-0.2) 10^3/ul Absolute Nucleated RBC 10^3/ul Nucleated RBC % INR (Anticoag Therapy) (0.77-1.02) Sodium (133-145) mmol/L Potassium (3.5-5.0) mmol/L Chloride (101-111) mmol/L Carbon Dioxide (22-32) mmol/L Anion Gap (2-11) mmol/L BUN (6-24) mg/dL Creatinine (0.67-1.17) mg/dL Est GFR ( Amer) (>60) Est GFR (Non-Af Amer) (>60) BUN/Creatinine Ratio (8-20) Glucose (70-100) mg/dL Lactic Acid 2.1 H* (0.5-2.0) mmol/L Calcium (8.6-10.3) mg/dL Total Bilirubin (0.2-1.0) mg/dL AST (13-39) U/L ALT (7-52) U/L Alkaline Phosphatase (34-104) U/L Troponin I 0.00 (<0.04) ng/mL Total Protein (6.4-8.9) g/dL Albumin (3.2-5.2) g/dL Globulin (2-4) g/dL Albumin/Globulin Ratio (1-3) Result Diagrams: 11/28/17 11:45 03/03/18 11:45 Lab Statement: Any lab studies that have been ordered have been reviewed, and results considered in the medical decision making process. - CT CTA Chest/Thorax CT Interpretation: Positive (See Comments) CT Interpretation Completed By: Radiologist - 1. NO PULMONARY ARTERIAL FILLING DEFECT TO SUGGEST PULMONARY EMBOLISM. 2. ATHEROSCLEROSIS. - EKG 11:17 Cardiac Rate: NL EKG Rhythm: Sinus Rhythm - [address] Segment: Normal Ectopy: None EKG Interpretation: LBBB EKG Comparison: No Significant Change - since 04/30/17 Chest Pain Course/Dx - Course Course Of Treatment: Mr. Robertson presented with an atypical CP after a recent surgery involving GET. He R/O'd for DE or PE. The pain sounds radicular or musculoskeletal to me and I recommended he F/U this week with his PMD. - Diagnoses Provider Diagnoses: Chest pain Discharge - Discharge Plan Condition: Stable Disposition: HOME Patient Education Materials: Chest Pain (ED) Referrals: Beatrice Hollingsworth MD [Primary Care Provider] - 3 Days The documentation as recorded by the Demario douglass Stephanie accurately reflects the service I personally performed and the decisions made by me, Michel Almaguer MD.
== END 2017-11-28 15:26 | disposition home or self-care (01) ==
LOC: ED 11:02
DX: R07.89 Other chest pain (principal); I70.0 Atherosclerosis of aorta; Z87.891 Personal history of nicotine dependence
CPT/HCPCS: 36415; 71275; 80053; 83605; 84484; 85025; 85610; 93005; 99282; Q9967

== ENCOUNTER 2018-02-02 09:52 | Day surgery (SDC) | payer MEDICARE ==
[~2018-02-02 09:52] MED LIST changes: -Famotidine IV* 10 MG/ML 2 ML (20 mg) IV ONE
[2018-02-02] MEDS ORDERED: ceFAZolin 2 GM PREMIX (*) 2 GM/50 ML BAG IVPB ONE (10:05)
[2018-02-02] MEDS ORDERED: Midazolam* 1 MG/ML 2 ML VIAL (2 MG) ONE ×2 (10:56→14:11)
[2018-02-02] MEDS ORDERED: fentaNYL* 50 MCG/ML 2 ML VIAL (100 MCG VIAL) ONE (10:56)
[2018-02-02] MEDS ORDERED: Methylene Blue 0.5 %* 50 MG/10 ML AMP IV ONE (11:45)
[2018-02-02] MEDS ORDERED: Lidocain 1% EPI 1:100,000 * 30 ML MDV ONE (11:45)
[2018-02-02] MEDS ORDERED: Mineral Oil Sterile, TOPICAL* 25 ML BTL ONE (11:46)
[2018-02-02] MEDS ORDERED: Bupivacaine 0.25% SDV* 30 ML ONE (11:46)
[2018-02-02] MEDS ORDERED: Propofol* 10 MG/ML 20 ML BTL IV PUSH ONE ×2 (12:24→14:22)
[2018-02-02] MEDS ORDERED: Naloxone* 0.4 MG/ML 1 ML VIAL IV PRN (12:26)
[2018-02-02 16:09] VITALS: BP 154/76
== END 2018-02-02 16:10 | disposition home or self-care (01) ==
LOC: OR 09:52
PROVIDERS: ATTEND Plastic Surgery
DX: C44.219 Basal cell carcinoma of skin of left ear and external auricular canal (principal); C44.41 Basal cell carcinoma of skin of scalp and neck; I10 Essential (primary) hypertension; Z87.891 Personal history of nicotine dependence
CPT/HCPCS: 88305; 88331; 88332; A9270-GY; J0690; J2250; J2704; J3010

== ENCOUNTER → 2018-02-23 13:55 | Day surgery (SDC) | payer MEDICARE ==
[~2018-02-23 13:55] MED LIST changes: +Acetaminophen TAB* 325 MG PO PRN; +Famotidine IV* 10 MG/ML 2 ML (20 mg) ONE; +Lidocain 1% EPI 1:100,000 * 30 ML MDV ONE; +Lidocaine 2% PF * 5 ML VIAL ONE; +Midazolam* 1 MG/ML 2 ML VIAL (2 MG) ONE; +Mineral Oil Sterile, TOPICAL* 25 ML BTL ONE; +NS 0.9% 1000 ML* 1,000 ML IV SCH; +Naloxone* 0.4 MG/ML 1 ML VIAL IV PRN; +Ondansetron ODT TAB* 4 MG PO PRN; +PROCHLORPERAZINE INJ 5 MG/ML 2 ML VIAL IV PRN; +Propofol* 10 MG/ML 20 ML BTL IV PUSH ONE; +ceFAZolin 2 GM PREMIX (*) 2 GM/50 ML BAG IVPB ONE; +fentaNYL* 50 MCG/ML 2 ML VIAL (100 MCG VIAL) ONE
[2018-02-23 19:47] VITALS: BP 154/74
== END | disposition home or self-care (01) ==
LOC: OR 13:55
PROVIDERS: ATTEND Plastic Surgery
DX: C44.319 Basal cell carcinoma of skin of other parts of face (principal); Z85.038 Personal history of other malignant neoplasm of large intestine; Z85.828 Personal history of other malignant neoplasm of skin; I10 Essential (primary) hypertension; I63.9 Cerebral infarction, unspecified; E11.9 Type 2 diabetes mellitus without complications; Z79.84 Long term (current) use of oral hypoglycemic drugs; Z87.891 Personal history of nicotine dependence
CPT/HCPCS: 88305; 88331; 88332; A9270-GY; J0690; J2250; J2704; J3010

== ENCOUNTER 2021-12-15 14:09 | Inpatient (IN) ==
[2021-12-15 14:41] LABS: ABS Basophils 0.1 10^3/ul (0-0.2); ABS Eosinophils 0.1 10^3/ul (0-0.6); ABS Monocytes 0.6 10^3/ul (0-0.8); ABS Neutrophils 5.4 10^3/ul (1.5-7.7); Eosinophil % 0.7 %; Hematocrit 43 % (42-52); Hemoglobin 14.6 g/dL (14.0-18.0); Lymphocyte % 13.7 %; Mean Corpuscular HGB Conc 34 g/dL (31-36); Mean Corpuscular Hemoglobin 36 pg (27-31); Mean Corpuscular Volume 104 fL (80-94); Mean Platelet Volume 9.7 fL (7.4-10.4); Nucleated Red Blood Cells % 0.1; Platelet Count 179 10^3/uL (150-450); Red Blood Count 4.11 10^6 /uL (4.18-5.48); Red Cell Distribution Width 13 % (10-15); White Blood Count 7.1 10^3/uL (3.5-10.8)
[2021-12-15 14:47] LABS: INR 1.16 (0.86-1.15)
[2021-12-15 15:06] LABS: High Sens Troponin Baseline 48 pg/mL (<20)
[2021-12-15 15:32] LABS: Albumin 4.4 g/dL (3.2-5.2); Calcium 9.9 mg/dL (8.6-10.3); Globulin 2.2 g/dL (2-4); Magnesium 1.8 mg/dL (1.9-2.7); Potassium 4.6 mmol/L (3.5-5.0); Total Bilirubin 0.7 mg/dL (0.2-1.0); Total Protein 6.6 g/dL (6.4-8.9)
[2021-12-15 16:11] LABS: High Sensitivity Troponin 1 Hr 48 pg/mL (<20)
[2021-12-15] MEDS ORDERED: Lactated Ringers 500 ml BAG 500 ML IV ONE (16:46)
[2021-12-15] MEDS ORDERED: Magnesium Sulfate 2 gm BAG 2 GM/50 ML BAG IVPB ONE (16:46)
[2021-12-15] MEDS ORDERED: Atropine 0.1 MG/ML 10 ml SYR (1 mg) ONE (19:06)
[2021-12-15] MEDS: DOXYcycline 100 MG in NS 0.9% 250 ml 250 ML IVPB SCH (19:52)
[2021-12-15] MEDS ORDERED: Heparin 5000 UNITS/ML 1 mL VIAL SUBCUT SCH (21:00)
[2021-12-16 04:14] LABS: ABS Basophils 0.1 10^3/ul (0-0.2); ABS Eosinophils 0.2 10^3/ul (0-0.6); ABS Monocytes 0.5 10^3/ul (0-0.8); ABS Neutrophils 3.9 10^3/ul (1.5-7.7); Eosinophil % 3.4 %; Hematocrit 36 % (42-52); Hemoglobin 12.6 g/dL (14.0-18.0); Lymphocyte % 17.5 %; Mean Corpuscular HGB Conc 35 g/dL (31-36); Mean Corpuscular Hemoglobin 37 pg (27-31); Mean Corpuscular Volume 104 fL (80-94); Mean Platelet Volume 9.8 fL (7.4-10.4); Platelet Count 167 10^3/uL (150-450); Red Blood Count 3.44 10^6 /uL (4.18-5.48); Red Cell Distribution Width 13 % (10-15); White Blood Count 5.7 10^3/uL (3.5-10.8)
[2021-12-16 04:47] LABS: Calcium 8.9 mg/dL (8.6-10.3); Phosphorus 3.6 mg/dL (2.5-5.0); Potassium 4.5 mmol/L (3.5-5.0); eGFR CKD-EPI 66.7 (>60)
[2021-12-16] MEDS: DOXYcycline 100 MG in NS 0.9% 250 ml 250 ML IVPB SCH (06:43)
[2021-12-16] MEDS: Multivitamins/Minerals TAB PO SCH (08:18)
[2021-12-16] MEDS ORDERED: ceFAZolin 2 GM in NS PREMIX 2 GM/100 ML BAG IVPB ONE (10:27)
[2021-12-16] MEDS ORDERED: ceFAZolin VIAL 1 GM in NS 0.9% 50 ML 50 ML IVPB ONE (10:27)
[2021-12-16] MEDS ORDERED: ceFAZolin VIAL 1 GM in NS *SYRINGE* 10 ML IVPB ONE (11:00)
[2021-12-16] MEDS ORDERED: Lidocaine 1% MPF 5 ML VIAL ONE ×2 (11:14→11:20)
[2021-12-16] MEDS ORDERED: Midazolam 5 mg/5 ml VIAL 1 mg/ml 5 ml VIAL (5 mg) ONE (11:32)
[2021-12-16] MEDS ORDERED: fentaNYL 100 mcg/2 ml 50 MCG/ML VIAL ONE (12:12)
[2021-12-16 14:01] LABS: TSH Ultra Thyroid Stim Horm 3.11 mcIU/mL (0.34-5.60)
[2021-12-16] MEDS: NS 0.9% 1000 ml BAG 1,000 ML IV SCH (17:42)
[2021-12-16] MEDS: ceFAZolin 1 GM in Dextrose 1 GM/50 ML BAG IVPB SCH (21:26)
[2021-12-17] MEDS: ceFAZolin 1 GM in Dextrose 1 GM/50 ML BAG IVPB SCH ×2 (04:55→12:06)
[2021-12-17 06:00] LABS: ABS Basophils 0.1 10^3/ul (0-0.2); ABS Eosinophils 0.2 10^3/ul (0-0.6); ABS Lymphocytes 0.9 10^3/ul (1.0-4.8); ABS Monocytes 0.4 10^3/ul (0-0.8); ABS Neutrophils 3.8 10^3/ul (1.5-7.7); Eosinophil % 3.6 %; Hematocrit 40 % (42-52); Hemoglobin 13.9 g/dL (14.0-18.0); Lymphocyte % 16.5 %; Mean Corpuscular HGB Conc 35 g/dL (31-36); Mean Corpuscular Hemoglobin 36 pg (27-31); Mean Corpuscular Volume 103 fL (80-94); Mean Platelet Volume 9.3 fL (7.4-10.4); Platelet Count 142 10^3/uL (150-450); Red Blood Count 3.91 10^6 /uL (4.18-5.48); Red Cell Distribution Width 13 % (10-15); White Blood Count 5.4 10^3/uL (3.5-10.8)
[2021-12-17] MEDS: Multivitamins/Minerals TAB PO SCH (09:53)
[2021-12-17] MEDS: NS 0.9% 1000 ml BAG 1,000 ML IV SCH (09:58)
[2021-12-17 13:11] VITALS: BP 154/70
== END 2021-12-17 14:10 | disposition home or self-care (01) | DRG 243 ==
LOC: ED 14:09 → EDHOLD 15:27 → SUATTDRO 15:27 → ICU 16:50 → MEDTELE 12-16 12:50
PROVIDERS: ADMIT Nurse Practitioner Family; ATTEND Internal Medicine

== ENCOUNTER 2024-04-03 13:29 | Observation (INO) ==
[2024-04-03] MEDS: NS 0.9% 1000 ml BAG 1,000 ML IV ONE (14:40)
[2024-04-03] MEDS: guaiFENesin/CODIENE 100mg/10mg 5 ML UDC PO ONE (14:47)
[2024-04-03 14:51] LABS: ABS Lymphocytes 0.6 10^3/uL (1.0-4.8); ABS Monocytes 0.6 10^3/uL (0.0-1.1); Eosinophil % 0.2 %; Hematocrit 36.7 % (38-53); Hemoglobin 13.4 g/dL (13.2-16.3); Lymphocyte % 7.8 %; Mean Corpuscular Hemoglobin 35.7 pg (27-33); Mean Corpuscular Hgb Conc 36.4 g/dL (31-36); Mean Corpuscular Volume 98.1 fL (80-97); Platelet Count 242 10^3/uL (150-450); Red Blood Count 3.75 10^6/uL (4.06-5.63); Red Cell Distribution Width 12.3 % (12-17); White Blood Count 8.3 10^3/uL (3.6-10.2)
[2024-04-03 15:33] LABS: Albumin 3.6 g/dL (3.2-5.2); Albumin/Globulin Ratio 1.6 (1-3); Calcium 8.5 mg/dL (8.6-10.3); Creatinine, Serum 0.63 mg/dL (0.67-1.17); Globulin 2.3 g/dL (2-4); Potassium 3.7 mmol/L (3.5-5.0); Total Protein 5.9 g/dL (6.4-8.9); eGFR CKD-EPI 94.4 (>60)
[2024-04-03] MEDS: Albuterol HFA INHALER 8 gm MDI INH ONE (15:47)
[2024-04-03 16:16] LABS: Magnesium 1.2 mg/dL (1.9-2.7)
[2024-04-03] MEDS: Magnesium Sulf 4 GM/100 ML IV 4,000 MG/100 ML BAG IVPB ONE (17:07)
[2024-04-03] MEDS: cefTRIAXone 1 gm/50 mL D5W 1 GM/50 ML BAG IV SCH (18:06)
[2024-04-03] MEDS ORDERED: Albuterol/Ipratropium NEB.SOL (2.5/0.5 MG) 3 ML NEB.SOLN INH PRN (18:08)
[2024-04-03] MEDS ORDERED: Dextrose 50% Syringe 50 ml 25 GM/50 ML SYRINGE IV PUSH PRN (18:08)
[2024-04-03 20:17] LABS: Urine Appearance Clear; Urine Bilirubin Negative (Negative); Urine Blood Negative (Negative); Urine Color Light-Yellow; Urine Glucose Negative (Negative); Urine Ketones 2+ (Negative); Urine Nitrite Negative (Negative); Urine Protein Negative (Negative); Urine Specific Gravity 1.007 (1.002-1.030); Urine Urobilinogen 1+ (Negative)
[2024-04-03] MEDS: Heparin 5000 UNITS/ML 1 mL VIAL SUBCUT SCH (20:48)
[2024-04-03 21:04] LABS: Urine Osmo 192 mOsm/kg (150-1150)
[2024-04-03 21:08] LABS: Osmolality Serum 270 mOsm/kg (275-295)
[2024-04-04 05:49] LABS: ABS Lymphocytes 0.4 10^3/uL (1.0-4.8); ABS Monocytes 0.6 10^3/uL (0.0-1.1); ABS Neutrophils 5.3 10^3/uL (1.5-7.6); Hematocrit 36.5 % (38-53); Hemoglobin 12.9 g/dL (13.2-16.3); Lymphocyte % 6.5 %; Mean Corpuscular Hemoglobin 34.5 pg (27-33); Mean Corpuscular Hgb Conc 35.2 g/dL (31-36); Mean Corpuscular Volume 98.1 fL (80-97); Mean Platelet Volume 7.1 fL (7.5-11.2); Platelet Count 248 10^3/uL (150-450); Red Blood Count 3.72 10^6/uL (4.06-5.63); Red Cell Distribution Width 12.2 % (12-17); White Blood Count 6.3 10^3/uL (3.6-10.2)
[2024-04-04 06:24] LABS: C Reactive Protein 172.18 mg/L (<8.01); Magnesium 1.9 mg/dL (1.9-2.7)
[2024-04-04 09:01] LABS: Albumin 3.3 g/dL (3.2-5.2); Albumin/Globulin Ratio 1.3 (1-3); Calcium 8.6 mg/dL (8.6-10.3); Creatinine, Serum 0.6 mg/dL (0.67-1.17); Globulin 2.5 g/dL (2-4); Potassium 3.8 mmol/L (3.5-5.0); Total Bilirubin 0.6 mg/dL (0.2-1.0); Total Protein 5.8 g/dL (6.4-8.9); eGFR CKD-EPI 95.8 (>60)
[2024-04-04] MEDS: Azithromycin 250 MG in NS 0.9% 250 ml 250 ML IVPB SCH (09:51)
[2024-04-04] MEDS: Multivitamins/Minerals TAB PO SCH (09:51)
[2024-04-04] MEDS: Aspirin EC 81 mg TAB.EC (enteric coated) PO SCH (09:52)
[2024-04-04 13:53] VITALS: BP 123/51
== END 2024-04-04 17:30 | disposition home or self-care (01) ==
LOC: EDHOLD 13:29 → ED 13:29 → EDHOLD 21:31 → SSU 22:09
PROVIDERS: ADMIT Family Medicine; ATTEND Family Medicine